=== PATIENT | female | born 1945 | race Caucasian/White ===

== ENCOUNTER 2016-12-11 14:59 | Emergency (ER) | payer MEDICARE, OTHER ==
[~2016-12-11] VITALS: Ht 170.2 cm; Wt 82.3 kg
[~2016-12-11 14:59] MED LIST: CARV12.5 PO; CELE20TA PO; CIPR250T52 PO; CLON0.5T PO; FLUT50SP EACH NARE; HYDR-3801 PO; LEVO112T2 PO; LOVA10TA PO; METF500 PO; PERC5TAB12 PO; PRIN20TA2 PO
[2016-12-11 15:12] VITALS: PULSE 69; RESP 16; TEMP 97.9; O2SAT 93
[2016-12-11] MEDS ORDERED: CEPH-460 PO (16:39)
--- NOTE | 2016-12-11 16:39 | PD ---
HPI Chief Complaint: Fall Time Seen by Provider: 16:30 Travel History International Travel<30 days: No Contact w/Intl Traveler<30days: No Traveled to known affect area: No History of Present Illness HPI This 71-year-old female is complaining of redness to her right leg. She had a fall 2 days ago. She scraped her leg at that time. She also bumped her head. She has not been having any headache or any numbness or tingling. She is concerned because the area around the scrapes is become red and she has not noted any fever. She does have a history of diabetes which is treated with metformin. He has a history of stroke which has left her with right hemiparesis PFSH Past Medical History Hx Anticoagulant Therapy: Yes Arthritis: Yes Anxiety: Yes Depression: Yes Heart Rhythm Problems: No Cancer: No Cardiovascular Problems: Yes (htn on meds) High Cholesterol: Yes Chest Pain: No Congestive Heart Failure: No COPD: Yes Cerebrovascular Accident: Yes (cva 3 yrs ago) Diabetes: Yes (type 2) Patient Takes Glucophage: Yes Diminished Hearing: No Endocrine: Yes (HYPOTHYROID) Gastrointestinal Disorders: No Genitourinary: Yes (CKD II) Headaches: No Hypertension: Yes Immune Disorder: No Implanted Vascular Access Dvce: No Insomnia: Yes Kidney Stones: No Musculoskeletal: Yes (generalized muscle weakness) Neurologic: Yes Psychiatric: Yes Reproductive: No Respiratory: Yes Migraines: No Myocardial Infarction: Yes Renal Failure: No Seizures: No Sleep Apnea: No Thyroid Disease: Yes ?: Not Menopausal: Yes : 4 Para: 4 Tubal Ligation: Yes Past Surgical History Abdominal Surgery: Yes (gallbladder) AICD: No Arteriovenous Shunt: No Cardiac Surgery: Yes (ENDARTERECTOMY) Section: Yes Cholecystectomy: Yes Ear Surgery: No Endocrine Surgery: No Eye Surgery: Yes (cataract) Genitourinary Surgery: No Gynecologic Surgery: Yes (c section ) Insulin Pump: No Joint Replacement: No Neurologic Surgery: No Oral Surgery: No Pacemaker: No Thoracic Surgery: No Other Surgery: Yes Social History Alcohol Use: No Tobacco Use: No Substance Use: No Allergies-Medications (Allergen,Severity, Reaction): Coded Allergies: Terramycin (Verified Allergy, Severe, 12/11/16) Reported Meds & Prescriptions Reported Meds & Active Scripts Active Cipro (Ciprofloxacin HCl) 250 Mg Tab 250 Mg PO BID 3 Days Reported Percocet (Oxycodone-Acetaminophen) 5-325 mg Tab 1 Tab PO Q6H PRN Prinivil (Lisinopril) 20 Mg Tab 40 Mg PO DAILY Lovastatin 10 Mg Tab 10 Mg PO DAILY Levothyroxine (Levothyroxine Sodium) 112 Mcg Tab 112 Mcg PO DAILY Glucophage (Metformin HCl) 500 Mg Tab 1,000 Mg PO BIDPC With meals Clonazepam 0.5 Mg Tab 0.5 Mg PO BID Celexa (Citalopram Hydrobromide) 20 Mg Tab 20 Mg PO DAILY Hydralazine (Hydralazine HCl) 100 Mg Tab 100 Mg PO BID Take with meals Fluticasone Nasal [place] 50 Mcg/Act Naspr 50 Mcg EACH NARE BID 50 mcg/spray Coreg (Carvedilol) 12.5 Mg Tab 25 Mg PO BID Review of Systems General / Constitutional: No: Fever, Chills Eyes: No: Diploplia, Blurred Vision HENT: No: Headaches, Vertigo Cardiovascular: No: Chest Pain or Discomfort, Palpitations Respiratory: No: Cough, Shortness of Breath Gastrointestinal: No: Nausea Skin: Positive Rash Neurologic: Positive: Focal Abnormalities, No: Weakness Psychiatric: No: Anxiety Hematologic/Lymphatic: No: Easy Bruising Physical Exam Narrative GENERAL: Well-developed female SKIN: Warm and dry. There are several abrasions over the anterior portion of the lower leg. There is some surrounding erythema. There is no purulent drainage. There is no lymphangitis or lymphadenopathy HEAD: Atraumatic. Normocephalic. EYES: Pupils equal and round. No scleral icterus. No injection or drainage. ENT: No nasal bleeding or discharge. Mucous membranes pink and moist. NECK: Trachea midline. No JVD. CARDIOVASCULAR: Regular rate and rhythm. No murmur appreciated. RESPIRATORY: No accessory muscle use. Clear to auscultation. Breath sounds equal bilaterally. GASTROINTESTINAL: Abdomen soft, non-tender, nondistended. Hepatic and splenic margins not palpable. MUSCULOSKELETAL: No obvious deformities. No clubbing. No cyanosis. No edema. NEUROLOGICAL: Awake and alert. No obvious cranial nerve deficits. Motor grossly within normal limits. Normal speech. PSYCHIATRIC: Appropriate mood and affect; insight and judgment normal. Data Data Last Documented VS Vital Signs Date Time Temp Pulse Resp B/P Pulse Ox O2 Delivery O2 Flow Rate FiO2 12/11/16 15:12 97.9 69 16 93 [facility] Medical Decision Making Medical Screen Exam Complete: Yes Emergency Medical Condition: Yes Medical Record Reviewed: Yes Differential Diagnosis Differential includes cellulitis, healing wound, abrasion tibia Narrative Course Patient does have cellulitis surrounding her abrasions. She does not appear toxic. She'll be placed on Keflex Diagnosis Primary Impression: Cellulitis of right leg Scripts Cephalexin (Keflex)500 Mg [id number] Mg PO Q6H #28 CAP Ref 0 Prov:Xavier Batista MD 12/11/16 Disposition: 01 DISCHARGE HOME Condition: Stable Xavier Batista MD Dec 11, 2016 16:39
[2016-12-11] MEDS ORDERED: CEPHALEXIN MONOHYDRATE 500 MG CAP PO ONE (16:45)
== END 2016-12-11 18:20 | disposition home or self-care (01) ==
LOC: PHED 14:59
DX: L03.115 Cellulitis of right lower limb (principal)
CPT/HCPCS: 99282

== ENCOUNTER 2017-12-28 16:08 | Inpatient (IN) | payer OTHER, MEDICAID, MEDICARE ==
[~2017-12-28] VITALS: Ht 170.2 cm; Wt 83.0 kg
[~2017-12-28 16:08] MED LIST changes: +CEPH-460 PO; -CIPR250T52 PO
[2017-12-28 18:52] VITALS: BP 144/66; PULSE 73; RESP 16; TEMP 99; O2SAT 93
[2017-12-28 20:20] VITALS: BP 128/53; PULSE 76; RESP 16; O2SAT 94
--- NOTE | 2017-12-28 20:21 | PD ---
HPI Chief Complaint: GI Complaint Time Seen by Provider: 19:43 Travel History International Travel<30 days: No Contact w/Intl Traveler<30days: No Traveled to known affect area: No History of Present Illness HPI Patient is a 72-year-old female apparently presented to the emergency department before the start of my shift for evaluation of nausea vomiting and diarrhea. She has been waiting for an extended period of time for examination, a my examination the patient is fairly altered, she cannot tell me the day or the time. EMSs long since left and her EMS report is not readily available at this time. The patient is a GCS of 14, fairly confused and unable to answer any my questions. No family available for further questions either. PFSH Past Medical History Hx Anticoagulant Therapy: Yes Arthritis: Yes Anxiety: Yes Depression: Yes Heart Rhythm Problems: No Cancer: No Cardiovascular Problems: Yes (htn on meds) High Cholesterol: Yes Chest Pain: No Congestive Heart Failure: No COPD: Yes Cerebrovascular Accident: Yes (cva 3 yrs ago) Diabetes: Yes (type 2) Diminished Hearing: No Endocrine: Yes (HYPOTHYROID) Gastrointestinal Disorders: No Genitourinary: Yes (CKD II) Headaches: No Hypertension: Yes Immune Disorder: No Implanted Vascular Access Dvce: No Insomnia: Yes Kidney Stones: No Musculoskeletal: Yes (generalized muscle weakness) Neurologic: Yes Psychiatric: Yes Reproductive: No Respiratory: Yes Migraines: No Myocardial Infarction: Yes Renal Failure: No Seizures: No Sleep Apnea: No Thyroid Disease: Yes ?: Not Menopausal: Yes : 4 Para: 4 Tubal Ligation: Yes Past Surgical History Abdominal Surgery: Yes (gallbladder) AICD: No Arteriovenous Shunt: No Cardiac Surgery: Yes (ENDARTERECTOMY) Section: Yes Cholecystectomy: Yes Ear Surgery: No Endocrine Surgery: No Eye Surgery: Yes (cataract) Genitourinary Surgery: No Gynecologic Surgery: Yes (c section ) Insulin Pump: No Joint Replacement: No Neurologic Surgery: No Oral Surgery: No Pacemaker: No Thoracic Surgery: No Other Surgery: Yes Social History Alcohol Use: No Tobacco Use: No Substance Use: No Allergies-Medications (Allergen,Severity, Reaction): Coded Allergies: oxytetracycline (Unverified Allergy, Severe, 05/30/17) Reported Meds & Prescriptions Reported Meds & Active Scripts Active Keflex (Cephalexin) 500 Mg Cap 500 Mg PO Q6H Reported Percocet (Oxycodone-Acetaminophen) 5-325 mg Tab 1 Tab PO Q6H PRN Prinivil (Lisinopril) 20 Mg Tab 40 Mg PO DAILY Lovastatin 10 Mg Tab 10 Mg PO DAILY Levothyroxine (Levothyroxine Sodium) 112 Mcg Tab 112 Mcg PO DAILY Glucophage (Metformin HCl) 500 Mg Tab 1,000 Mg PO BIDPC With meals Clonazepam 0.5 Mg Tab 0.5 Mg PO BID Celexa (Citalopram Hydrobromide) 20 Mg Tab 20 Mg PO DAILY Hydralazine (Hydralazine HCl) 100 Mg Tab 100 Mg PO BID Take with meals Fluticasone Nasal [place] 50 Mcg/Act Naspr 50 Mcg EACH NARE BID 50 mcg/spray Coreg (Carvedilol) 12.5 Mg Tab 25 Mg PO BID Review of Systems ROS Limitations: Altered Mental Status Physical Exam Exam Limitations: Altered Mental Status Narrative GENERAL: Well-developed well-nourished, confused, no obvious distress peer SKIN: Focused skin assessment warm/dry. HEAD: Atraumatic. Normocephalic. EYES: Pupils equal and round. No scleral icterus. No injection or drainage. ENT: No nasal bleeding or discharge. Mucous membranes pink and moist. NECK: Trachea midline. No JVD. CARDIOVASCULAR: Regular rate and rhythm. No murmur appreciated. RESPIRATORY: No accessory muscle use. Clear to auscultation. Breath sounds equal bilaterally. GASTROINTESTINAL: Abdomen soft, non-tender, nondistended. Hepatic and splenic margins not palpable. She has not had any vomiting or diarrhea while in the emergency department. MUSCULOSKELETAL: No obvious deformities. No clubbing. No cyanosis. No edema. NEUROLOGICAL: Awake and alert, oriented to self only, GCS of 14 for confusion, follows commands in all 4 extremities. PSYCHIATRIC: Appropriate mood and affect; insight and judgment normal. Data Data Last Documented VS Vital Signs Date Time Temp Pulse Resp B/P (MAP) Pulse Ox O2 Delivery O2 Flow Rate FiO2 12/28/17 21:48 98 Room Air 12/28/17 20:20 76 16 2.00 12/28/17 18:52 99.0 Orders Orders Electrocardiogram (12/28/17 20:19) Complete Blood Count With Diff (12/28/17 20:19) Comprehensive Metabolic Panel (12/28/17 20:19) Creatine Kinase (Cpk) (12/28/17 20:19) Prothrombin Time / Inr (Pt) (12/28/17 20:19) Act Partial Throm Time (Ptt) (12/28/17 20:19) Troponin I (12/28/17 20:19) Thyroid Stimulating Hormone (12/28/17 20:19) Urinalysis - C+S If Indicated (12/28/17 20:19) Chest, Single Ap (12/28/17 20:19) Ct Brain W/O Iv Contrast(Rout) (12/28/17 20:19) Blood Glucose (12/28/17 20:19) Ecg Monitoring (12/28/17 20:19) Iv Access Insert/Monitor (12/28/17 20:19) Oximetry (12/28/17 20:19) Sodium Chloride 0.9% Flush (Ns Flush) (12/28/17 20:30) Cath For Specimen (12/28/17 22:34) Urine Culture (12/28/17 23:48) Blood Culture (12/29/17 00:50) Ceftriaxone Inj (Rocephin Inj) (12/29/17 01:00) Labs Laboratory Tests Test 12/28/17 20:29 12/28/17 23:48 White Blood Count 13.8 TH/MM3 Red Blood Count 4.04 MIL/MM3 Hemoglobin 12.3 GM/DL Hematocrit 36.7 % Mean Corpuscular Volume 90.8 FL Mean Corpuscular Hemoglobin 30.5 PG Mean Corpuscular Hemoglobin Concent 33.6 % Red Cell Distribution Width 13.2 % Platelet Count 148 TH/MM3 Mean Platelet Volume 9.1 FL CBC Comment AUTO DIFF Differential Total Cells Counted 100 Neutrophils % (Manual) 87 % Band Neutrophils % 4 % Lymphocytes % 3 % Monocytes % 6 % Neutrophils # (Manual) 12.6 TH/MM3 Differential Comment FINAL DIFF MANUAL Platelet Estimate LOW Platelet Morphology Comment NORMAL Prothrombin Time 10.6 SEC Prothromb Time International Ratio 1.0 RATIO Activated Partial Thromboplast Time 21.3 SEC Blood Urea Nitrogen 22 MG/DL Creatinine 1.17 MG/DL Random Glucose 157 MG/DL Total Protein 7.2 GM/DL Albumin 3.5 GM/DL Calcium Level 9.4 MG/DL Alkaline Phosphatase 62 U/L Aspartate Amino Transf (AST/SGOT) 15 U/L Alanine Aminotransferase (ALT/SGPT) 19 U/L Total Bilirubin 1.2 MG/DL Sodium Level 138 MEQ/L Potassium Level 4.3 MEQ/L Chloride Level 104 MEQ/L Carbon Dioxide Level 24.4 MEQ/L Anion Gap 10 MEQ/L Estimat Glomerular Filtration Rate 45 ML/MIN Total Creatine Kinase 81 U/L Troponin I LESS THAN 0.02 NG/ML Thyroid Stimulating Hormone 3rd Gen 0.301 uIU/ML Urine Color DARK-YELLOW Urine Turbidity HAZY Urine pH 5.5 Urine Specific [place] 1.023 Urine Protein 30 mg/dL Urine Glucose (UA) NEG mg/dL Urine Ketones NEG mg/dL Urine Occult Blood NEG Urine Nitrite POS Urine Bilirubin NEG Urine Urobilinogen LESS THAN 2.0 MG/DL Urine Leukocyte Esterase LARGE Urine RBC 10 /hpf Urine WBC 39 /hpf Urine WBC Clumps MANY Urine Squamous Epithelial Cells 1 /hpf Urine Bacteria MANY /hpf Urine Mucus FEW /lpf Microscopic Urinalysis Comment CATH-CULTURE IND MDM Medical Decision Making Medical Screen Exam Complete: Yes Emergency Medical Condition: Yes Differential Diagnosis UTI, altered mental status, intracranial abnormality, sepsis Narrative Course Patient room to the emergency department, she appears well but certainly altered , my concern for UTI, took several hours to get catheterization and finally does show evidence of UTI, she was started on Rocephin, discussed with Dr. Fofana for admission. I had attempted to call her next of kin on the contact number we have on file and was unsuccessful in contacting any next of kin. Diagnosis Primary Impression: Urinary tract infection Additional Impression: Altered mental status Admitting Information Admitting Physician Requests: Admit Condition: Stable Shilo Barrientos MD Dec 28, 2017 20:21
[2017-12-28] MEDS ORDERED: SODIUM CHLORIDE 0.9% FLUSH 10 ML FLUSH IV FLUSH PRN (20:30)
[2017-12-28 20:43] LABS: HEMATOCRIT 36.7 % (35.0-46.0); HEMOGLOBIN 12.3 GM/DL (11.6-15.3); MEAN CELL VOLUME 90.8 FL (80.0-100.0); MEAN CORPUSCULAR HEMOGLOBIN 30.5 PG (27.0-34.0); MEAN CORPUSCULAR HGB CONC 33.6 % (32.0-36.0); MEAN PLATELET VOLUME 9.1 FL (7.0-11.0); PLATELET COUNT 148 TH/MM3 (150-450); RED BLOOD COUNT 4.04 MIL/MM3 (4.00-5.30); RED CELL DISTRIBUTION WIDTH 13.2 % (11.6-17.2); WHITE BLOOD COUNT 13.8 TH/MM3 (4.0-11.0)
[2017-12-28 20:55] LABS: PROTHROMBIN TIME - PATIENT 10.6 SEC (9.8-11.6)
--- NOTE | 2017-12-28 21:04 | RADRPT ---
EXAM DATE/TIME: 12/28/2017 20:48 [facility] COMPARISON: CT THORAX W/O CONTRAST, August 18, 2015, 17:58. CHEST SINGLE AP, August 18, 2015, 14:38. INDICATIONS : Syncope. MEDICAL HISTORY : Stroke. Hypertension. Chronic obstructive pulmonary disease.Diabetes. SURGICAL HISTORY : Cholecystectomy. section.Tubal ligation.Endartectomy. ENCOUNTER: Initial ACUITY: 1 day PAIN SCORE: Non-responsive. LOCATION: Bilateral chest FINDINGS: There are mild bilateral interstitial perihilar infiltrates. Similar findings have been seen on the p revious studies. No acute infiltrate. No pleural effusion or pneumothorax. Heart size stable, within normal limits. CONCLUSION: Chronic perihilar interstitial opacities. No acute infiltrates seen. Ede Barraza MD on December 28, 2017 at 21:01 Board Certified Radiologist. This report was verified electronically.
--- NOTE | 2017-12-28 21:06 | RADRPT ---
EXAM DATE/TIME: 12/28/2017 20:58 [facility] COMPARISON: CT BRAIN W/O CONTRAST, October 05, 2016, 14:19. INDICATIONS : Altered mental status. RADIATION DOSE: 37.89 CTDIvol (mGy) MEDICAL HISTORY : Hypertension. Cerebrovascular disease. Diabetes mellitus type 1. SURGICAL HISTORY : Non-responsive. ENCOUNTER: Initial ACUITY: 1 day PAIN SCALE: 0/10 LOCATION: cranial TECHNIQUE: Multiple contiguous axial images were obtained of the head. Using automated exposure control and adj ustment of the mA and/or kV according to patient size, radiation dose was kept as low as reasonably a chievable to obtain optimal diagnostic quality images. DICOM format image data is available electro nically for review and comparison. FINDINGS: CEREBRUM: The ventricles are normal for age. No evidence of midline shift, mass lesion, hemorrhage or acute in farction. No extra-axial fluid collections are seen. Atrophy and chronic low attenuation in the [place] ventricular white matter again noted. There is an old infarct of the left parietal lobe again seen. POSTERIOR FOSSA: The cerebellum and brainstem are intact. The 4th ventricle is midline. The cerebellopontine angle i s unremarkable. EXTRACRANIAL: The visualized portion of the orbits is intact. SKULL: The calvaria is intact. No evidence of skull fracture. CONCLUSION: 1. No acute abnormality demonstrated. 2. Large, old left parietal lobe infarct. 3. Atrophy and chronic white matter changes. Ede Barraza MD on December 28, 2017 at 21:03 Board Certified Radiologist. This report was verified electronically.
[2017-12-28 21:12] LABS: ALBUMIN 3.5 GM/DL (3.4-5.0); AST (GOT) 15 U/L (15-37); BICARBONATE 24.4 MEQ/L (21.0-32.0); BLOOD UREA NITROGEN 22 MG/DL (7-18); CALCIUM 9.4 MG/DL (8.5-10.1); CHLORIDE 104 MEQ/L (98-107); CREATININE 1.17 MG/DL (0.50-1.00); GLOMERULAR FILTRATION RATE 45 ML/MIN (>89); GLUCOSE,RANDOM 157 MG/DL (74-106); SODIUM (NA) 138 MEQ/L (136-145)
[2017-12-28 21:13] LABS: ALT (GPT) 19 U/L (10-53)
[2017-12-28 21:23] LABS: ALKALINE PHOSPHATASE 62 U/L (45-117); TOTAL BILIRUBIN ADULT 1.2 MG/DL (0.2-1.0); TOTAL PROTEIN 7.2 GM/DL (6.4-8.2); TROPONIN I LESS THAN 0.02 NG/ML (0.02-0.05)
[2017-12-28 21:41] LABS: BANDS 4 % (0-6); LYMPHOCYTES 3 % (9-44); MONOCYTES 6 % (0-8); NEUTROPHIL # MANUAL DIFF 12.6 TH/MM3 (1.8-7.7); POLYS (SEG NEUTROPHILS) 87 % (16-70)
[2017-12-28 21:48] VITALS: O2SAT 98
[2017-12-29] VITALS (7 sets, daily range): BP systolic 117–152; BP diastolic 56–82; PULSE 79–86; RESP 16–20; TEMP 98.2–99.4; O2SAT 94–98
[2017-12-29 00:44] LABS: BACTERIA, URINE MANY /hpf; BILIRUBIN, URINE NEG (NEG); BLOOD, URINE NEG (NEG); GLUCOSE,URINE NEG (NEG); KETONE, URINE NEG (NEG); MUCUS URINE FEW /lpf (OCC); NITRITE,URINE POS (NEG); PH, URINE 5.5 (5.0-8.5); SQUAMOUS EPITHELIAL CELL URINE 1 /hpf (0-5); URINE COLOR DARK-YELLOW (YELLW/STRAW); URINE LEUKOCYTE ESTERASE LARGE (NEG); WHITE BLOOD CELL CLUMPS MANY
[2017-12-29] MEDS ORDERED: cefTRIAXone INJ 1,000 MG in SODIUM CHLORIDE 0.9% INJ 100 ML IV ONE (01:00)
[2017-12-29] MEDS ORDERED: LACTULOSE SYRUP 20 GM/30 ML CUP PO PRN (01:15)
[2017-12-29] MEDS ORDERED: NALOXONE HCL 0.4 MG/ML AMP IV PUSH PRN (01:15)
[2017-12-29] MEDS ORDERED: SENNOSIDES 8.6 MG TAB PO PRN (01:15)
[2017-12-29] MEDS ORDERED: SODIUM CHLORIDE 0.9% FLUSH 10 ML FLUSH IV FLUSH PRN (01:15)
[2017-12-29] MEDS ORDERED: ACETAMINOPHEN 325 MG TAB PO PRN (01:15)
[2017-12-29] MEDS ORDERED: ONDANSETRON HCL 4 MG/2 ML VIAL IVP PRN (01:15)
[2017-12-29] MEDS ORDERED: BISACODYL 10 MG SUPP RECTAL PRN (01:15)
[2017-12-29] MEDS ORDERED: MAGNESIUM HYDROXIDE SUSP 30 ML CUP PO PRN (01:15)
[2017-12-29] MEDS ORDERED: DEXTROSE 50% IN WATER 50 ML VIAL(D50) IV PUSH PRN (01:30)
[2017-12-29] MEDS ORDERED: GLUCAGON 1 MG/ML VIAL OTHER PRN (01:30)
[2017-12-29] MEDS: SODIUM CHLOR 0.9% 1000 ML INJ 1,000 ML IV SCH ×3 (01:42→21:30)
[2017-12-29] MEDS: HEPARIN SODIUM - SQ 10,000 UNITS/ML VIAL SQ SCH ×3 (01:43→18:14)
--- NOTE | 2017-12-29 04:40 | HHI.HP ---
[facility] David Hanley MD Admission Diagnosis Altered mental status/Complicated UTI. Diagnoses: Travel History International Travel<30 Days: No Contact w/Intl Traveler <30 Da: No Traveled to Known Affected Are: No History of Present Illness 71-year-old female with a PMH of HTN, h/o CVA w/ Expressive Aphasia, COPD, DM, Anxiety and Depression who was brought to the emergency department for the evaluation of nausea, vomiting and diarrhea. The patient seems somewhat altered although her baseline is unknown. Previous attempts to contact her son were unsuccessful. She states that she "needs to have a cigarette." And that her "stroke has been getting worse" for approximately one month. The patient know she is in [place]. Does not know the year or her exact location. Patient complains of right sided weakness that she believes is worsening. She is unable to answer any additional questions. Review of Systems ROS Limitations: Clinical Condition Limited by clinical condition Past Family Social History Past Medical History (Obtained from medical records) HTN, h/o CVA w/ Expressive Aphasia, COPD, DM, Anxiety and Depression Past Surgical History Cholecystectomy, Endarterectomy, , Cataract Surgery Reported Medications Reported Meds & Active Scripts Active Keflex (Cephalexin) 500 Mg Cap 500 Mg PO Q6H Reported Percocet (Oxycodone-Acetaminophen) 5-325 mg Tab 1 Tab PO Q6H PRN Prinivil (Lisinopril) 20 Mg Tab 40 Mg PO DAILY Lovastatin 10 Mg Tab 10 Mg PO DAILY Levothyroxine (Levothyroxine Sodium) 112 Mcg Tab 112 Mcg PO DAILY Glucophage (Metformin HCl) 500 Mg Tab 1,000 Mg PO BIDPC With meals Clonazepam 0.5 Mg Tab 0.5 Mg PO BID Celexa (Citalopram Hydrobromide) 20 Mg Tab 20 Mg PO DAILY Hydralazine (Hydralazine HCl) 100 Mg Tab 100 Mg PO BID Take with meals Fluticasone Nasal [place] 50 Mcg/Act Naspr 50 Mcg EACH NARE BID 50 mcg/spray Coreg (Carvedilol) 12.5 Mg Tab 25 Mg PO BID Allergies: Coded Allergies: oxytetracycline (Unverified Allergy, Severe, 05/30/17) Family History Reviewed. No h/o DM or CAD Social History Negative for alcohol, tobacco or drugs. Physical Exam Vital Signs Vital Signs Date Time Temp Pulse Resp B/P (MAP) Pulse Ox O2 Delivery O2 Flow Rate FiO2 12/29/17 01:43 82 16 127/82 (97) 98 Nasal Cannula 2.00 12/28/17 21:48 98 Room Air 12/28/17 20:20 76 16 128/53 (78) 94 Nasal Cannula 2.00 12/28/17 18:52 99.0 73 16 144/66 (92) 93 Physical Exam GENERAL: female lying in bed SKIN: No rashes, ecchymoses or lesions. Cool and dry. HEAD: Atraumatic. Normocephalic. No temporal or scalp tenderness. EYES: Pupils equal round and reactive. Extraocular motions intact. No scleral icterus. No injection or drainage. ENT: Nose without bleeding, purulent drainage or septal hematoma. Throat without erythema, tonsillar hypertrophy or exudate. Uvula midline. Airway patent. NECK: Trachea midline. No JVD or lymphadenopathy. Supple, nontender, no meningeal signs. CARDIOVASCULAR: Regular rate and rhythm without murmurs, gallops, or rubs. RESPIRATORY: Clear to auscultation. Breath sounds equal bilaterally. No wheezes , rales, or rhonchi. GASTROINTESTINAL: Abdomen soft, non-tender, nondistended. No hepato-splenomegaly , or palpable masses. No guarding. MUSCULOSKELETAL: Contractures of the second through fourth digits of the right hand. Able to move all 4 extremities. No edema. NEUROLOGICAL: Awake and alert. Cranial nerves II through XII intact. Mildly slurred speech with unclear baseline. Right-sided weakness in the right upper and lower extremities. Unable to fully assess neurologic status is patient has difficulty following commands. Laboratory Laboratory Tests Test 12/28/17 20:29 12/28/17 23:48 12/29/17 03:25 White Blood Count 13.8 Red Blood Count 4.04 Hemoglobin 12.3 Hematocrit 36.7 Mean Corpuscular Volume 90.8 Mean Corpuscular Hemoglobin 30.5 Mean Corpuscular Hemoglobin Concent 33.6 Red Cell Distribution Width 13.2 Platelet Count 148 Mean Platelet Volume 9.1 CBC Comment AUTO DIFF Differential Total Cells Counted 100 Neutrophils % (Manual) 87 Band Neutrophils % 4 Lymphocytes % 3 Monocytes % 6 Neutrophils # (Manual) 12.6 Differential Comment FINAL DIFF MANUAL Platelet Estimate LOW Platelet Morphology Comment NORMAL Prothrombin Time 10.6 Prothromb Time International Ratio 1.0 Activated Partial Thromboplast Time 21.3 Blood Urea Nitrogen 22 Creatinine 1.17 Random Glucose 157 Total Protein 7.2 Albumin 3.5 Calcium Level 9.4 Alkaline Phosphatase 62 Aspartate Amino Transf (AST/SGOT) 15 Alanine Aminotransferase (ALT/SGPT) 19 Total Bilirubin 1.2 Sodium Level 138 Potassium Level 4.3 Chloride Level 104 Carbon Dioxide Level 24.4 Anion Gap 10 Estimat Glomerular Filtration Rate 45 Total Creatine Kinase 81 Troponin I LESS THAN 0.02 Thyroid Stimulating Hormone 3rd Gen 0.301 Urine Color DARK-YELLOW Urine Turbidity HAZY Urine pH 5.5 Urine Specific [place] 1.023 Urine Protein 30 Urine Glucose (UA) NEG Urine Ketones NEG Urine Occult Blood NEG Urine Nitrite POS Urine Bilirubin NEG Urine Urobilinogen LESS THAN 2.0 Urine Leukocyte Esterase LARGE Urine RBC 10 Urine WBC 39 Urine WBC Clumps MANY Urine Squamous Epithelial Cells 1 Urine Bacteria MANY Urine Mucus FEW Microscopic Urinalysis Comment CATH-CULTURE IND Lactic Acid Level 0.9 Date/Time Source Procedure Growth Status 12/29/17 01:15 Blood Peripheral Aerobic Blood Culture Pending Received 12/29/17 01:15 Blood Peripheral Anaerobic Blood Culture Pending Received 12/28/17 23:48 Urine Catheterized Urine Urine Culture Pending Received Result Diagram: 12/28/17202812/28/172028 Caprini VTE Risk Assessment Caprini VTE Risk Assessment: Mod/High Risk (score >= 2) Caprini Risk Assessment Model Point Value = 1 Point Value = 2 Point Value = 3 Point Value = 5 Age 41-60 Minor surgery BMI > 25 kg/m2 Swollen legs Varicose veins or History of unexplained or recurrent spontaneous Oral contraceptives or hormone replacement Sepsis (< 1 month) Serious lung disease, including pneumonia (< 1 month) Abnormal pulmonary function Acute myocardial infarction Congestive heart failure (< 1 month) History of inflammatory bowel disease Medical patient at bed rest Age 61-74 Arthroscopic surgery Major open surgery (> 45 min) Laparoscopic surgery (> 45 min) Malignancy Confined to bed (> 72 hours) Immobilizing plaster cast Central venous access Age >= 75 History of VTE Family history of VTE Factor V Leiden Prothrombin [id number] Lupus anticoagulant Anticardiolipin antibodies Elevated serum homocysteine Heparin-induced thrombocytopenia Other congenital or acquired thrombophilia Stroke (< 1 month) Elective arthroplasty Hip, pelvis, or leg fracture Acute spinal cord injury (< 1 month) Prophylaxis Regimen Total Risk Factor Score Risk Level Prophylaxis Regimen 0-1 Low Early ambulation 2 Moderate Order ONE of the following: *Sequential Compression Device (SCD) *Heparin 5000 units SQ BID 3-4 Higher Order ONE of the following medications: *Heparin 5000 units SQ TID *Enoxaparin/Lovenox 40 mg SQ daily (WT < 150 kg, CrCl > 30 mL/min) *Enoxaparin/Lovenox 30 mg SQ daily (WT < 150 kg, CrCl > 10-29 mL/min) *Enoxaparin/Lovenox 30 mg SQ BID (WT < 150 kg, CrCl > 30 mL/min) AND/OR *Sequential Compression Device (SCD) 5 or more Highest Order ONE of the following medications: *Heparin 5000 units SQ TID (Preferred with Epidurals) *Enoxaparin/Lovenox 40 mg SQ daily (WT < 150 kg, CrCl > 30 mL/min) *Enoxaparin/Lovenox 30 mg SQ daily (WT < 150 kg, CrCl > 10-29 mL/min) *Enoxaparin/Lovenox 30 mg SQ BID (WT < 150 kg, CrCl > 30 mL/min) AND *Sequential Compression Device (SCD) Assessment and Plan Assessment and Plan Assessment/plan: 1. Altered mental status Unclear etiology Head CT significant for large, old left parietal lobe infarct, personally reviewed. No acute findings. Likely secondary to UTI Baseline unknown, patient's son was called and a message was left however he never returned call If patient's mental status does not return to baseline, patient may benefit from additional imaging and neurology consult 2. UTI UA consistent with UTI Leukocytosis Urine/blood cultures pending Rocephin IV fluids 3. Hypertension/COPD/anxiety/depression Continue home medication 4. Diabetes mellitus Sliding scale insulin Monitor blood glucose FEN Heart healthy diet Electrolytes: Monitor and replete when necessary Heparin Physician Certification 2 Midnight Certification Type: Admission for Inpatient Services Order for Inpatient Services The services are ordered in accordance with Medicare regulations or non- Medicare payer requirements, as applicable. In the case of services not specified as inpatient-only, they are appropriately provided as inpatient services in accordance with the 2-midnight benchmark. Estimated LOS (days): 2 2 days is the estimated time the patient will need to remain in the hospital, assuming treatment plan goals are met and no additional complications. Post-Hospital Plan: Not yet determined Amena Fofana MD Dec 29, 2017 04:40
[2017-12-29] MEDS: INSULIN ASPART SUPPLEMENTAL SCALE SQ SCH ×4 (07:58→21:00)
[2017-12-29] MEDS: LEVOTHYROXINE SODIUM 112 MCG TAB PO SCH (07:58)
[2017-12-29] MEDS: SODIUM CHLORIDE 0.9% FLUSH 10 ML FLUSH IV FLUSH SCH ×2 (08:58→21:30)
[2017-12-29] MEDS ORDERED: ETOMIDATE 40 MG/20 ML VIAL ONE (09:02)
[2017-12-29] MEDS ORDERED: SUCCINYLCHOLINE CHLORIDE 200 MG/10 ML VIAL ONE (09:02)
[2017-12-29] MEDS: CITALOPRAM HYDROBROMIDE 20 MG TAB PO SCH (10:13)
[2017-12-29] MEDS: hydrALAZINE HCL 100 MG TAB PO SCH ×2 (10:13→21:30)
[2017-12-29] MEDS: LISINOPRIL 20 MG TAB PO SCH (10:13)
[2017-12-29] MEDS: DOCUSATE SODIUM 50 MG/SENNA 8.6 MG TAB PO SCH ×2 (10:13→21:30)
[2017-12-29] MEDS: CARVEDILOL 12.5 MG TAB PO SCH ×2 (10:14→21:30)
[2017-12-29] MEDS: PRAVASTATIN SOD 10 MG TAB PO SCH (10:15)
--- NOTE | 2017-12-29 16:48 | EKG ---
Date Performed: 12/28/2017 Time Performed: 21:15:05 PTAGE: 72 years EKG: Sinus rhythm WITH SINUS ARRHYTHMIA NORMAL ECG Compared to PREVIOUS TRACING , PVCs no longer present, otherwise no signficant change. PREVIOUS MATEO N08/18/2015 16.01 DOCTOR: Dano Agee Interpretating Date/Time 12/29/2017 16:46:39
[2017-12-30 01:06] VITALS: BP 123/60; PULSE 84; RESP 20; TEMP 98.6; O2SAT 93
[2017-12-30] MEDS: cefTRIAXone INJ 1,000 MG in SODIUM CHLORIDE 0.9% INJ 100 ML IV SCH (01:32)
[2017-12-30] MEDS: HEPARIN SODIUM - SQ 10,000 UNITS/ML VIAL SQ SCH ×3 (01:33→17:45)
[2017-12-30] MEDS: LEVOTHYROXINE SODIUM 112 MCG TAB PO SCH (06:32)
[2017-12-30] MEDS: SODIUM CHLOR 0.9% 1000 ML INJ 1,000 ML IV SCH ×2 (06:35→17:15)
[2017-12-30 06:40] VITALS: BP 131/62; PULSE 85; RESP 20; TEMP 98.7; O2SAT 92
[2017-12-30 07:26] VITALS: BP 147/68; PULSE 75; RESP 17; TEMP 100; O2SAT 92
[2017-12-30] MEDS: INSULIN ASPART SUPPLEMENTAL SCALE SQ SCH ×4 (07:58→20:05)
[2017-12-30] MEDS: DOCUSATE SODIUM 50 MG/SENNA 8.6 MG TAB PO SCH ×2 (08:41→20:05)
[2017-12-30] MEDS: hydrALAZINE HCL 100 MG TAB PO SCH ×2 (08:41→20:04)
[2017-12-30] MEDS: CITALOPRAM HYDROBROMIDE 20 MG TAB PO SCH (08:42)
[2017-12-30] MEDS: SODIUM CHLORIDE 0.9% FLUSH 10 ML FLUSH IV FLUSH SCH ×2 (08:42→20:05)
[2017-12-30] MEDS: PRAVASTATIN SOD 10 MG TAB PO SCH (08:42)
[2017-12-30] MEDS: LISINOPRIL 20 MG TAB PO SCH (08:42)
[2017-12-30] MEDS: CARVEDILOL 12.5 MG TAB PO SCH ×2 (08:42→20:05)
[2017-12-30 11:37] VITALS: BP 116/56; PULSE 79; RESP 18; TEMP 98.5; O2SAT 91
[2017-12-30 15:59] VITALS: BP 146/63; PULSE 76; RESP 18; TEMP 98.1; O2SAT 94
[2017-12-30 20:26] VITALS: BP 148/91; PULSE 69; RESP 18; TEMP 98.3; O2SAT 94
--- NOTE | 2017-12-30 23:58 | HHI.PR ---
Subjective Remarks Patient awake, tells me she feels fine, however appears generally confused Objective Vital Signs Date Time Temp Pulse Resp B/P (MAP) Pulse Ox O2 Delivery O2 Flow Rate FiO2 12/30/17 20:26 98.3 69 18 148/91 (110) 94 12/30/17 15:59 98.1 76 18 146/63 (90) 94 12/30/17 11:37 98.5 79 18 116/56 (76) 91 12/30/17 07:26 100.0 75 17 147/68 (94) 92 12/30/17 06:40 98.7 85 20 131/62 (85) 92 12/30/17 01:06 98.6 84 20 123/60 (81) 93 I/O 12/30/17 12/30/17 12/30/17 12/31/17 12/31/17 12/31/17 07:00 15:00 23:00 07:00 15:00 23:00 Intake Total 220 ml 480 ml Balance 220 ml 480 ml Intake Oral 120 ml 480 ml IV Total 100 ml # Voids 2 3 # Bowel Movements 1 Result Diagram: 12/28/17202812/28/172028 Objective Remarks GENERAL: patient sitting up in bed. Appears comfortable. SKIN: Warm and dry. HEAD: Normocephalic. EYES: No scleral icterus. No injection or drainage. NECK: Supple, trachea midline. No JVD. CARDIOVASCULAR: Regular rate and rhythm without murmurs, gallops, or rubs. RESPIRATORY: Breath sounds equal bilaterally. No accessory muscle use. GASTROINTESTINAL: Abdomen soft, non-tender, nondistended. MUSCULOSKELETAL: No cyanosis, or edema. BACK: Nontender without obvious deformity. No CVA tenderness. A/P Assessment and Plan //Altered mental status Unclear etiology Head CT significant for large, old left parietal lobe infarct, personally reviewed. No acute findings. Likely secondary to UTI Baseline unknown, patient's son was called and a message was left however he never returned call If patient's mental status does not return to baseline, patient may benefit from additional imaging and neurology consult //UTI UA consistent with UTI Leukocytosis Urine/blood cultures pending Rocephin IV fluids -Growing gram-negative shalom Follow up cultures. // Hypertension/COPD/anxiety/depression Continue home medication //Diabetes mellitus Sliding scale insulin Monitor blood glucose FEN Heart healthy diet Electrolytes: Monitor and replete when necessary Heparin Discharge Planning PG recommends home health Follow-up cultures. Alejandro Veronica MD Dec 30, 2017 23:58
[2017-12-31] MEDS: cefTRIAXone INJ 1,000 MG in SODIUM CHLORIDE 0.9% INJ 100 ML IV SCH (00:11)
[2017-12-31] MEDS: HEPARIN SODIUM - SQ 10,000 UNITS/ML VIAL SQ SCH ×3 (00:13→17:11)
[2017-12-31 00:20] VITALS: BP 140/62; PULSE 81; RESP 18; TEMP 99.8; O2SAT 93
[2017-12-31] MEDS: SODIUM CHLOR 0.9% 1000 ML INJ 1,000 ML IV SCH ×2 (03:15→12:35)
[2017-12-31 05:37] VITALS: BP 158/70; PULSE 89; RESP 17; TEMP 99.5; O2SAT 93
[2017-12-31] MEDS: LEVOTHYROXINE SODIUM 112 MCG TAB PO SCH (05:45)
[2017-12-31] MEDS: INSULIN ASPART SUPPLEMENTAL SCALE SQ SCH ×4 (08:00→20:32)
[2017-12-31] MEDS: SODIUM CHLORIDE 0.9% FLUSH 10 ML FLUSH IV FLUSH SCH ×2 (09:00→20:30)
[2017-12-31] MEDS: PRAVASTATIN SOD 10 MG TAB PO SCH (09:00)
[2017-12-31] MEDS: DOCUSATE SODIUM 50 MG/SENNA 8.6 MG TAB PO SCH ×2 (09:00→20:30)
[2017-12-31 09:20] VITALS: BP 151/67; PULSE 77; RESP 18; TEMP 99.6; O2SAT 92
[2017-12-31] MEDS: CITALOPRAM HYDROBROMIDE 20 MG TAB PO SCH (09:23)
[2017-12-31] MEDS: LISINOPRIL 20 MG TAB PO SCH (09:23)
[2017-12-31] MEDS: hydrALAZINE HCL 100 MG TAB PO SCH ×2 (09:23→20:30)
[2017-12-31] MEDS: CARVEDILOL 12.5 MG TAB PO SCH ×2 (09:24→20:30)
[2017-12-31 09:31] LABS: AUTOMATED NEUTROPHIL # 5.7 TH/MM3 (1.8-7.7); BASOPHIL # 0.1 TH/MM3 (0-0.2); BASOPHIL % 0.8 % (0.0-2.0); EOSINOPHIL # 0.3 TH/MM3 (0-0.4); EOSINOPHIL % 3.9 % (0.0-4.0); HEMATOCRIT 35.6 % (35.0-46.0); HEMOGLOBIN 12.2 GM/DL (11.6-15.3); LYMPH % 11.3 % (9.0-44.0); LYMPHOCYTE # 0.9 TH/MM3 (1.0-4.8); MEAN CELL VOLUME 89.9 FL (80.0-100.0); MEAN CORPUSCULAR HEMOGLOBIN 30.7 PG (27.0-34.0); MEAN CORPUSCULAR HGB CONC 34.2 % (32.0-36.0); MEAN PLATELET VOLUME 8.9 FL (7.0-11.0); MONOCYTE # 1.1 TH/MM3 (0-0.9); PLATELET COUNT 167 TH/MM3 (150-450); RED BLOOD COUNT 3.96 MIL/MM3 (4.00-5.30); WHITE BLOOD COUNT 8.1 TH/MM3 (4.0-11.0)
[2017-12-31 10:00] LABS: BICARBONATE 25.4 MEQ/L (21.0-32.0); CALCIUM 8.5 MG/DL (8.5-10.1); CREATININE 0.72 MG/DL (0.50-1.00)
[2017-12-31 13:15] VITALS: BP 134/60; PULSE 76; RESP 16; TEMP 98.1; O2SAT 92
--- NOTE | 2017-12-31 13:24 | PD.CONS ---
History of Present Illness Service Infectious Disease Consult Requested By Dr Veronica Reason for Consult Evaluate patient with positive blood culture Primary Care Physician David Hanley MD Diagnoses: History of Present Illness Patient seen and examined. Records reviewed. Patient is not a good historian Patient is a 71-year-old female, brought to the hospital for further evaluation of nausea vomiting and diarrhea. She has been confused in the ED, and it's unclear what her baseline mental status is. Since admission she has not had any nausea or vomiting. She had 2 episodes of low-grade temp. Straight catheterization was done and it showed pyuria. Culture is growing Citrobacter. There were 2 blood cultures done in the ED and they are now reported as growing coag-negative staph. Patient has no line or hardware. She has been on Rocephin. Her white count was initially 13,000 and it's down to normal. Chest x-ray had some chronic perihilar infiltrates. CT has shown an old infarct. Infectious disease consultation is requested to evaluate the patient with positive blood culture. 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 COPD DM Anxiety and Depression Past Surgical History Cholecystectomy Endarterectomy Cataract Surgery Active Ordered Medications Current Medications Medications (Trade) Dose Ordered Sig/Samuel Route Start Time Stop Time Status Last Admin Ceftriaxone Sodium 1000 mg/ Sodium Chloride 100 ml @ 200 mls/hr Q24H IV 12/30/17 01:00 12/31/17 00:11 Sodium Chloride 1,000 ml @ 100 mls/hr Q10H IV 12/29/17 01:15 12/30/17 06:35 (NS Flush) 2 ml UNSCH PRN IV FLUSH 12/29/17 01:15 (NS Flush) 2 ml BID IV FLUSH 12/29/17 09:00 12/31/17 09:00 (Tylenol) 650 mg Q4H PRN PO 12/29/17 01:15 (Zofran Inj) 4 mg Q6H PRN IVP 12/29/17 01:15 (Heparin Inj) 5,000 units Q8H SQ 12/29/17 01:15 12/31/17 09:26 (Narcan Inj) 0.4 mg UNSCH PRN IV PUSH 12/29/17 01:15 (Margie-Colace) 1 tab BID PO 12/29/17 09:00 12/30/17 20:05 (Milk Of Magnesia Liq) 30 ml Q12H PRN PO 12/29/17 01:15 (Senokot) 17.2 mg Q12H PRN PO 12/29/17 01:15 (Dulcolax Supp) 10 mg DAILY PRN RECTAL 12/29/17 01:15 (Lactulose Liq) 30 ml DAILY PRN PO 12/29/17 01:15 (Coreg) 25 mg BID PO 12/29/17 09:00 12/31/17 09:24 (CeleXA) 20 mg DAILY PO 12/29/17 09:00 12/31/17 09:23 (Apresoline) 100 mg BID PO 12/29/17 09:00 12/31/17 09:23 (Synthroid) 112 mcg DAILY@0700 PO 12/29/17 07:00 12/31/17 05:45 (Prinivil) 40 mg DAILY PO 12/29/17 09:00 12/31/17 09:23 (Pravachol) 10 mg DAILY PO 12/29/17 09:00 12/31/17 09:00 (D50w (Vial) Inj) 50 ml UNSCH PRN IV PUSH 12/29/17 01:30 (Glucagon Inj) 1 mg UNSCH PRN OTHER 12/29/17 01:30 (NovoLOG SUPPLEMENTAL SCALE) 1 ACHS SLIDING SCALE SQ 12/29/17 08:00 12/29/17 12:00 Family History Not known Social History No smoking No alcohol abuse No illicit drugs Physical Exam Vital Signs Vital Signs Date Time Temp Pulse Resp B/P (MAP) Pulse Ox O2 Delivery O2 Flow Rate FiO2 12/31/17 09:20 99.6 77 18 151/67 (95) 92 12/31/17 05:37 99.5 89 17 158/70 (99) 93 12/31/17 00:20 99.8 81 18 140/62 (88) 93 12/30/17 20:26 98.3 69 18 148/91 (110) 94 12/30/17 15:59 98.1 76 18 146/63 (90) 94 Physical Exam GENERAL: Patient is a well-nourished, well-developed female, awake and alert , not in respiratory distress.Cant tell me year, and where she is SKIN: Warm and dry. No generalized rash, no ecchymoses and no evidence of embolic lesions. HEAD: Atraumatic. Normocephalic. No temporal wasting, or tenderness. EYES: [place] conjunctiva. No petechia or hemorrhage. Pupils equal, round and reactive to light. Extraocular movements full and intact. No scleral icterus. No injection or drainage. EARS, NOSE AND THROAT: Nose without bleeding or purulent nasal discharge. No sinus tenderness. Mucous membranes pink and moist. No oral lesions noted. No exudate. No oral thrush. NECK: Trachea midline. Supple and not tender, no meningeal signs CARDIOVASCULAR: Regular rate and rhythm. Has systolic murmur in LSB and base of the heart RESPIRATORY: Clear to auscultation. Breath sounds equal bilaterally. No rales , wheezing or rhonchi ABDOMEN: Soft, non-tender, nondistended. Bowel sounds present and normoactive. No guarding. No rebound. No organomegaly. EXTREMITIES: No clubbing, cyanosis, or edema. No joint effusion, has good ROM. No calf tenderness. Well perfused and warm. NEUROLOGICAL: Awake and alert. Cranial nerves grossly intact. RUE contracted and rigid. Motor strength BLE seems symmetrical PSYCHIATRIC: Normal affect, calm and cooperative. LINE: No evidence of infection Laboratory Laboratory Tests Test 12/31/17 08:47 White Blood Count 8.1 Red Blood Count 3.96 Hemoglobin 12.2 Hematocrit 35.6 Mean Corpuscular Volume 89.9 Mean Corpuscular Hemoglobin 30.7 Mean Corpuscular Hemoglobin Concent 34.2 Red Cell Distribution Width 13.0 Platelet Count 167 Mean Platelet Volume 8.9 Neutrophils (%) (Auto) 70.0 Lymphocytes (%) (Auto) 11.3 Monocytes (%) (Auto) 14.0 Eosinophils (%) (Auto) 3.9 Basophils (%) (Auto) 0.8 Neutrophils # (Auto) 5.7 Lymphocytes # (Auto) 0.9 Monocytes # (Auto) 1.1 Eosinophils # (Auto) 0.3 Basophils # (Auto) 0.1 CBC Comment DIFF FINAL Differential Comment Blood Urea Nitrogen 12 Creatinine 0.72 Random Glucose 132 Calcium Level 8.5 Sodium Level 141 Potassium Level 3.6 Chloride Level 106 Carbon Dioxide Level 25.4 Anion Gap 10 Estimat Glomerular Filtration Rate 79 Date/Time Source Procedure Growth Status 12/29/17 01:15 Blood Peripheral Aerobic Blood Culture - Preliminary Staph Sp Coagulase Negative Resulted 12/29/17 01:15 Blood Peripheral Anaerobic Blood Culture - Preliminary NO GROWTH IN 2 DAYS Resulted 12/28/17 23:48 Urine Catheterized Urine Urine Culture - Final Citrobacter Freundii Complete Result Diagram: 12/31/17 0847 12/31/17 0847 Imaging RADIOLOGY STUDIES/FILMS REVIEWED Last Impressions Head CT 12/28/172018 Signed Impressions: Service Date/Time: Thursday, December 28, 2017 20:58 - CONCLUSION: 1. No acute abnormality demonstrated. 2. Large, old left parietal lobe infarct. 3. Atrophy and chronic white matter changes. Ede Barraza MD Chest X-Ray 12/28/172018 Signed Impressions: Service Date/Time: Thursday, December 28, 2017 20:48 - CONCLUSION: Chronic perihilar interstitial opacities. No acute infiltrates seen. Ede Barraza MD Assessment and Plan Assessment and Plan IMPRESSION Possible sepsis on admission, with fever, leukocytosis, ?worse mental status UTI, CitroBC with Coag Neg Staph, ?significance - no hardware, no line - temps better, WBC better Hx CVA RECOMMENDATION Repeat 2 BC Follow C/S Continue Rocephin Follow temps Monitor progress Will determine course of Rx once work-up is completed I will follow along with you Thank you for this consultation Jadyn Manzo MD Dec 31, 2017 13:24
--- NOTE | 2017-12-31 15:48 | HHI.PR ---
Subjective Remarks Patient continues pleasant. Tells me she is feeling all right. Calls to son go to voicedcil Objective Vital Signs Date Time Temp Pulse Resp B/P (MAP) Pulse Ox O2 Delivery O2 Flow Rate FiO2 12/31/17 13:15 98.1 76 16 134/60 (84) 92 12/31/17 09:20 99.6 77 18 151/67 (95) 92 12/31/17 05:37 99.5 89 17 158/70 (99) 93 12/31/17 00:20 99.8 81 18 140/62 (88) 93 12/30/17 20:26 98.3 69 18 148/91 (110) 94 12/30/17 15:59 98.1 76 18 146/63 (90) 94 I/O 12/30/17 12/30/17 12/30/17 12/31/17 12/31/17 12/31/17 07:00 15:00 23:00 07:00 15:00 23:00 Intake Total 220 ml 480 ml 120 ml Balance 220 ml 480 ml 120 ml Intake Oral 120 ml 480 ml 120 ml IV Total 100 ml # Voids 2 3 3 # Bowel Movements 1 1 Result Diagram: 12/31/17 0847 12/31/17 0847 Objective Remarks GENERAL: patient sitting up in bed. Appears comfortable. Pleasant and cooperative. Oriented to place, not to year. SKIN: Warm and dry. HEAD: Normocephalic. EYES: No scleral icterus. No injection or drainage. NECK: Supple, trachea midline. No JVD. CARDIOVASCULAR: Regular rate and rhythm without murmurs, gallops, or rubs. RESPIRATORY: Breath sounds equal bilaterally. No accessory muscle use. GASTROINTESTINAL: Abdomen soft, non-tender, nondistended. MUSCULOSKELETAL: No cyanosis, or edema. BACK: Nontender without obvious deformity. No CVA tenderness. A/P Assessment and Plan //Altered mental status. Unknown baseline likely chronic dementia based on CT scan. Unclear etiology Head CT significant for large, old left parietal lobe infarct, personally reviewed. No acute findings. Likely secondary to UTI Baseline unknown, patient's son was called and a message was left however he never returned call If patient's mental status does not return to baseline, patient may benefit from additional imaging and neurology consult = Unknown baseline. Suspect patient has chronic dementia based on CT scan. //UTI UA consistent with UTI Leukocytosis Urine/blood cultures pending Rocephin IV fluids -Growing gram-negative shalom Follow up cultures. = 12/31. Citrobacter on urine culture. Continue antibiotics //Gram-positive bacteremia. ID consulted. Repeat blood cultures. Follow-up sensitivities. Echocardiogram pending. // Hypertension/COPD/anxiety/depression Continue home medication //Diabetes mellitus Sliding scale insulin Monitor blood glucose FEN Heart healthy diet Electrolytes: Monitor and replete when necessary Heparin Discharge Planning PT recommends home health although she will need supervision at home due to what appears to be chronic dementia. awaiting callback from son Pending workup for bacteremia. ID following Alejandro Veronica MD Dec 31, 2017 15:48
[2017-12-31 16:00] VITALS: BP 130/76; PULSE 82; RESP 18; TEMP 98.5; O2SAT 94
[2017-12-31 20:34] VITALS: BP 168/76; PULSE 77; RESP 18; TEMP 98.1; O2SAT 94
[2017-12-31 23:01] LABS: ALBUMIN 2.9 GM/DL (3.4-5.0); DIRECT BILIRUBIN ADULT 0.2 MG/DL (0.0-0.2); FREE T4 1.7 NG/DL (0.76-1.46); INDIRECT BILIRUBIN 0.5 MG/DL (0.0-0.8); TOTAL BILIRUBIN ADULT 0.7 MG/DL (0.2-1.0); TOTAL PROTEIN 6.5 GM/DL (6.4-8.2)
[2018-01-01 00:17] VITALS: BP 141/63; PULSE 80; RESP 18; TEMP 99; O2SAT 93
[2018-01-01] MEDS: cefTRIAXone INJ 1,000 MG in SODIUM CHLORIDE 0.9% INJ 100 ML IV SCH (01:30)
[2018-01-01] MEDS: HEPARIN SODIUM - SQ 10,000 UNITS/ML VIAL SQ SCH ×3 (01:32→17:18)
[2018-01-01 04:51] VITALS: BP 157/65; PULSE 82; RESP 18; TEMP 98.6; O2SAT 93
[2018-01-01] MEDS: LEVOTHYROXINE SODIUM 112 MCG TAB PO SCH (06:39)
[2018-01-01] MEDS: INSULIN ASPART SUPPLEMENTAL SCALE SQ SCH ×4 (08:00→20:42)
[2018-01-01] MEDS: CITALOPRAM HYDROBROMIDE 20 MG TAB PO SCH (08:55)
[2018-01-01] MEDS: hydrALAZINE HCL 100 MG TAB PO SCH ×2 (08:55→20:42)
[2018-01-01 08:56] VITALS: BP 148/62; PULSE 81; RESP 19; TEMP 98.5; O2SAT 90
[2018-01-01] MEDS: DOCUSATE SODIUM 50 MG/SENNA 8.6 MG TAB PO SCH ×2 (08:56→20:42)
[2018-01-01] MEDS: CARVEDILOL 12.5 MG TAB PO SCH ×2 (08:56→20:42)
[2018-01-01] MEDS: LISINOPRIL 20 MG TAB PO SCH (08:57)
[2018-01-01] MEDS: PRAVASTATIN SOD 10 MG TAB PO SCH (09:00)
[2018-01-01] MEDS: SODIUM CHLORIDE 0.9% FLUSH 10 ML FLUSH IV FLUSH SCH ×2 (09:00→20:43)
--- NOTE | 2018-01-01 12:09 | ECHRPT ---
Indication: ENDOCARDITIS CONCLUSIONS Normal left ventricular size. Wall thickness is normal. The left ventricular systolic function is normal with an estimated ejection fraction in the range of 55-60%. The left atrial size is mildly dilated. [id number] mitral valve regurgitation. There is mild tricuspid valve regurgitation. The estimated pulmonary arterial pressure is 59.6 mmHg. BP: 157 / 65 HR: 82 Rhythm: Sinus MEASUREMENTS (Male / Female) Normal Values Technical Quality:Fair 2D ECHO LV Diastolic Diameter PLAX 4.8 cm 4.2 - 5.9 / 3.9 - 5.3 cm LV Systolic Diameter PLAX 2.9 cm IVS Diastolic Thickness 0.9 cm 0.6 - 1.0 / 0.6 - 0.9 cm LVPW Diastolic Thickness 0.8 cm 0.6 - 1.0 / 0.6 - 0.9 cm LV Relative Wall Thickness 0.4 RV Internal Dim ED PLAX 3.5 cm LVOT Diameter 1.9 cm LA Systolic Diameter LX 4.4 cm 3.0 - 4.0 / 2.7 - 3.8 cm M-MODE Aortic Root Diameter MM 2.9 cm LA Systolic Diameter MM 3.3 cm LA Ao Ratio MM 1.1 AV Cusp Separation MM 2.1 cm DOPPLER AV Peak Velocity 182.0 cm/s AV Peak Gradient 13.2 mmHg LVOT Peak Velocity 109.0 cm/s LVOT Peak Gradient 4.8 mmHg AV Area Cont Eq pk 1.7 cm MV Area PHT 3.9 cm Mitral E Point Velocity 90.3 cm/s Mitral A Point Velocity 94.8 cm/s Mitral E to A Ratio 1.0 LV E' Lateral Velocity 8.3 cm/s Mitral E to LV E' Lateral Ratio 10.9 LV E' Septal Velocity 5.8 cm/s Mitral E to LV E' Septal Ratio 15.7 TR Peak Velocity 352.0 cm/s TR Peak Gradient 49.6 mmHg Right Atrial Pressure 10.0 mmHg Pulmonary Artery Systolic Pressu 59.6 mmHg Right Ventricular Systolic Press 59.6 mmHg FINDINGS LEFT VENTRICLE Normal left ventricular size. Wall thickness is normal. The left ventricular systolic function is normal with an estimated ejection fraction in the range of 55-60%. RIGHT VENTRICLE Normal right ventricular size and systolic function. LEFT ATRIUM The left atrial size is mildly dilated. RIGHT ATRIUM The right atrial size is normal. ATRIAL SEPTUM Normal atrial septal thickness without atrial level shunting by limited color doppler interrogation. AORTA The aortic root and proximal ascending aorta are normal in size on limited imaging. MITRAL VALVE [id number] mitral valve regurgitation. AORTIC VALVE Trileaflet aortic valve. No aortic valve stenosis or regurgitation. TRICUSPID VALVE There is mild tricuspid valve regurgitation. The estimated pulmonary arterial pressure is 59.6 mmHg. PULMONARY VALVE No pulmonary valve regurgitation or stenosis. VESSELS The inferior vena cava is normal in size. PERICARDIUM No pericardial effusion. Johan Crocker MD, FACC (Electronically Signed) Final Date:01 January 2018 12:08
[2018-01-01 12:24] VITALS: BP 136/62; PULSE 74; RESP 16; TEMP 98.2; O2SAT 93
--- NOTE | 2018-01-01 15:39 | HHI.PR ---
Subjective Remarks 71-year-old female with a PMH of HTN, h/o CVA w/ Expressive Aphasia, COPD, DM, Anxiety and Depression who was brought to the emergency department for the evaluation of nausea, vomiting and diarrhea. The patient seems somewhat altered although her baseline is unknown. Previous attempts to contact her son were unsuccessful. She states that she "needs to have a cigarette." And that her "stroke has been getting worse" for approximately one month. The patient know she is in [place]. Does not know the year or her exact location. Patient complains of right sided weakness that she believes is worsening. She is unable to answer any additional questions. 3 Patient awake, tells me she feels fine, however appears generally confused 12-31 Patient continues pleasant. Tells me she is feeling all right. Calls to son go to voicemail 01-01 states she lives with her son no current complaints still some confusion has left UPPER EXTREMITY AND LEFT LE WEAKNESS Patient may need sniff Await infectious disease clear AM LABS Objective Vitals Vital Signs Date Time Temp Pulse Resp B/P (MAP) Pulse Ox O2 Delivery O2 Flow Rate FiO2 01/01/18 12:24 98.2 74 16 136/62 (86) 93 01/01/18 08:56 98.5 81 19 148/62 (90) 90 01/01/18 04:51 98.6 82 18 157/65 (95) 93 01/01/18 00:17 99.0 80 18 141/63 (89) 93 12/31/17 20:34 98.1 77 18 168/76 (106) 94 12/31/17 16:00 98.5 82 18 130/76 (94) 94 I/O 12/31/17 12/31/17 12/31/17 01/01/18 01/01/18 01/01/18 07:00 15:00 23:00 07:00 15:00 23:00 Intake Total 120 ml 460 ml Balance 120 ml 460 ml Intake Oral 120 ml 360 ml IV Total 100 ml # Voids 3 2 # Bowel Movements 1 Result Diagram: 12/31/17 0847 12/31/17 0847 Other Results Laboratory Tests Test 12/31/17 08:47 01/01/18 05:14 White Blood Count 8.1 TH/MM3 Red Blood Count 3.96 MIL/MM3 Hemoglobin 12.2 GM/DL Hematocrit 35.6 % Mean Corpuscular Volume 89.9 FL Mean Corpuscular Hemoglobin 30.7 PG Mean Corpuscular Hemoglobin Concent 34.2 % Red Cell Distribution Width 13.0 % Platelet Count 167 TH/MM3 Mean Platelet Volume 8.9 FL Neutrophils (%) (Auto) 70.0 % Lymphocytes (%) (Auto) 11.3 % Monocytes (%) (Auto) 14.0 % Eosinophils (%) (Auto) 3.9 % Basophils (%) (Auto) 0.8 % Neutrophils # (Auto) 5.7 TH/MM3 Lymphocytes # (Auto) 0.9 TH/MM3 Monocytes # (Auto) 1.1 TH/MM3 Eosinophils # (Auto) 0.3 TH/MM3 Basophils # (Auto) 0.1 TH/MM3 CBC Comment DIFF FINAL Differential Comment Blood Urea Nitrogen 12 MG/DL Creatinine 0.72 MG/DL Random Glucose 132 MG/DL Calcium Level 8.5 MG/DL Sodium Level 141 MEQ/L Potassium Level 3.6 MEQ/L Chloride Level 106 MEQ/L Carbon Dioxide Level 25.4 MEQ/L Anion Gap 10 MEQ/L Estimat Glomerular Filtration Rate 79 ML/MIN Total Bilirubin 0.7 MG/DL Direct Bilirubin 0.2 MG/DL Indirect Bilirubin 0.5 MG/DL Aspartate Amino Transf (AST/SGOT) 20 U/L Alanine Aminotransferase (ALT/SGPT) 24 U/L Alkaline Phosphatase 70 U/L B-Type Natriuretic Peptide 156 PG/ML Total Protein 6.5 GM/DL Albumin 2.9 GM/DL Free Thyroxine 1.70 NG/DL Total Triiodothyronine 77 NG/DL Imaging Last Impressions Head CT 12/28/172018 Signed Impressions: Service Date/Time: Thursday, December 28, 2017 20:58 - CONCLUSION: 1. No acute abnormality demonstrated. 2. Large, old left parietal lobe infarct. 3. Atrophy and chronic white matter changes. Ede Barraza MD Chest X-Ray 12/28/172018 Signed Impressions: Service Date/Time: Thursday, December 28, 2017 20:48 - CONCLUSION: Chronic perihilar interstitial opacities. No acute infiltrates seen. Ede Barraza MD Objective Remarks GENERAL: Awake and alert talkative and cooperative oriented times person SKIN: Warm and dry. HEAD: Atraumatic. Normocephalic. EYES: Pupils equal and round. No scleral icterus. No injection or drainage. ENT: No nasal bleeding or discharge. Mucous membranes pink and moist. NECK: Trachea midline. No JVD. Supple CARDIOVASCULAR: Regular rate and rhythm. S1-S2 no S3 or S4 RESPIRATORY: No accessory muscle use. Clear to auscultation. Breath sounds equal bilaterally. GASTROINTESTINAL: Abdomen soft, non-tender, nondistended. Hepatic and splenic margins not palpable. MUSCULOSKELETAL: Extremities without clubbing, cyanosis, or edema. No obvious deformities. Right hand is contracted and weak right lower extremity is weak NEUROLOGICAL: Awake and alert. No obvious cranial nerve deficits. Motor grossly within normal limits. 4 out of 5 muscle strength in the arms and legs on the left, 3 out of 5 muscle strength in the right arms and legs. Normal speech. PSYCHIATRIC: INAppropriate mood and affect; insight and judgment ABnormal. Medications and IVs Current Medications Sodium Chloride (NS Flush) 2 ml UNSCH PRN IV FLUSH FLUSH AFTER USING IV ACCESS ; Start 12/28/17 at 20:30; Stop 12/30/17 at 11:30; Status DC Ceftriaxone Sodium 1000 mg/ Sodium Chloride 100 ml @ 200 mls/hr ONCE ONCE IV Last administered on 12/29/17at 01:29; Start 12/29/17 at 01:00; Stop 12/29/17 at 01:29; Status DC Ceftriaxone Sodium 1000 mg/ Sodium Chloride 100 ml @ 200 mls/hr Q24H IV Last administered on 01/01/18at 01:30; Start 12/30/17 at 01:00 Sodium Chloride 1,000 ml @ 100 mls/hr Q10H IV Last administered on 12/30/17at 06:35; Start 12/29/17 at 01:15; Stop 12/31/17 at 15:31; Status DC Sodium Chloride (NS Flush) 2 ml UNSCH PRN IV FLUSH FLUSH AFTER USING IV ACCESS ; Start 12/29/17 at 01:15 Sodium Chloride (NS Flush) 2 ml BID IV FLUSH Last administered on 01/01/18at 09: 00; Start 12/29/17 at 09:00 Acetaminophen (Tylenol) 650 mg Q4H PRN PO TEMP > 100.4; Start 12/29/17 at 01:15 Ondansetron HCl (Zofran Inj) 4 mg Q6H PRN IVP NAUSEA OR VOMITING; Start at 01:15 Heparin Sodium (Porcine) (Heparin Inj) 5,000 units Q8H SQ Last administered on 01/01/18at 08:57; Start 12/29/17 at 01:15 Naloxone HCl (Narcan Inj) 0.4 mg UNSCH PRN IV PUSH SEE LABEL COMMENTS; Start at 01:15 Senna/Docusate Sodium (Margie-Colace) 1 tab BID PO Last administered on at 08:56; Start 12/29/17 at 09:00 Magnesium Hydroxide (Milk Of Magnesia Liq) 30 ml Q12H PRN PO Mild constipation ; Start 12/29/17 at 01:15 Sennosides (Senokot) 17.2 mg Q12H PRN PO Moderate constipation; Start 12/29/17 at 01:15 Bisacodyl (Dulcolax Supp) 10 mg DAILY PRN RECTAL SEVERE CONSITIPATION/ IF NPO ; Start 12/29/17 at 01:15 Lactulose (Lactulose Liq) 30 ml DAILY PRN PO SEVERE CONSITIPATION/ IF PO; Start 12/29/17 at 01:15 Carvedilol (Coreg) 25 mg BID PO Last administered on 01/01/18 08:56; Start at 09:00 Citalopram Hydrobromide (CeleXA) 20 mg DAILY PO Last administered on 01/01/18 08:55; Start 12/29/17 at 09:00 Hydralazine HCl (Apresoline) 100 mg BID PO Last administered on 01/01/18 08:55 ; Start 12/29/17 at 09:00 Levothyroxine Sodium (Synthroid) 112 mcg DAILY@0700 PO Last administered on at 06:39; Start 12/29/17 at 07:00 Lisinopril (Prinivil) 40 mg DAILY PO Last administered on 01/01/18 08:57; Start 12/29/17 at 09:00 Pravastatin Sodium (Pravachol) 10 mg DAILY PO Last administered on 01/01/18at 09 :00; Start 12/29/17 at 09:00 Dextrose (D50w (Vial) Inj) 50 ml UNSCH PRN IV PUSH HYPOGLYCEMIA-SEE COMMENTS; Start 12/29/17 at 01:30 Glucagon (Glucagon Inj) 1 mg UNSCH PRN OTHER HYPOGLYCEMIA-SEE COMMENTS; Start 12/29/17 at 01:30 Insulin Aspart (NovoLOG SUPPLEMENTAL SCALE) 1 ACHS SLIDING SCALE SQ Last administered on 12/29/17at 12:00; Start 12/29/17 at 08:00 Etomidate (Amidate Inj) 40 mg STK-MED ONCE .ROUTE ; Start 12/29/17 at 09:02; Stop 12/29/17 at 09:03; Status DC Succinylcholine Chloride (Quelicin Inj) 200 mg STK-MED ONCE .ROUTE ; Start 12/29 at 09:02; Stop 12/29/17 at 09:03; Status DC A/P Assessment and Plan //Altered mental status. Unknown baseline likely chronic dementia based on CT scan. Unclear etiology Head CT significant for large, old left parietal lobe infarct, personally reviewed. No acute findings. Likely secondary to UTI Baseline unknown, patient's son was called and a message was left however he never returned call If patient's mental status does not return to baseline, patient may benefit from additional imaging and neurology consult = Unknown baseline. Suspect patient has chronic dementia based on CT scan. //UTI UA consistent with UTI Leukocytosis Urine/blood cultures pending Rocephin IV fluids -Growing gram-negative shalom Follow up cultures. = 12/31. Citrobacter on urine culture. Continue antibiotics Continue on Rocephin per infectious disease //Gram-positive bacteremia. ID consulted. Repeat blood cultures. Follow-up sensitivities. Echocardiogram reviewed appears stable // Hypertension/COPD/anxiety/depression Continue home medication //Diabetes mellitus Sliding scale insulin Monitor blood glucose FEN Heart healthy diet Electrolytes: Monitor and replete when necessary Heparin Will probably need SNF if she is able to go to [facility] Cannot reach family at this time Discharge Planning Pending infectious disease clearance managed Rolando Mcclure DO Jan 01, 2018 15:39
[2018-01-01 18:56] VITALS: BP 135/70; PULSE 76; RESP 18; TEMP 97.9; O2SAT 94
[2018-01-01 20:00] VITALS: BP 134/61; PULSE 74; RESP 20; TEMP 98; O2SAT 93
[2018-01-02] VITALS: BP 130/70; PULSE 81; RESP 20; TEMP 97.8; O2SAT 96
[2018-01-02] MEDS: cefTRIAXone INJ 1,000 MG in SODIUM CHLORIDE 0.9% INJ 100 ML IV SCH (01:13)
[2018-01-02] MEDS: HEPARIN SODIUM - SQ 10,000 UNITS/ML VIAL SQ SCH ×3 (01:18→16:50)
[2018-01-02 04:00] VITALS: BP 180/75; PULSE 75; RESP 20; TEMP 97; O2SAT 98
[2018-01-02] MEDS: LEVOTHYROXINE SODIUM 112 MCG TAB PO SCH (05:20)
[2018-01-02 07:56] LABS: AUTOMATED NEUTROPHIL # 5.2 TH/MM3 (1.8-7.7); BASOPHIL # 0.1 TH/MM3 (0-0.2); BASOPHIL % 0.9 % (0.0-2.0); EOSINOPHIL # 0.5 TH/MM3 (0-0.4); HEMATOCRIT 34.7 % (35.0-46.0); HEMOGLOBIN 11.8 GM/DL (11.6-15.3); LYMPH % 13.3 % (9.0-44.0); LYMPHOCYTE # 1.1 TH/MM3 (1.0-4.8); MEAN CELL VOLUME 89.8 FL (80.0-100.0); MEAN CORPUSCULAR HEMOGLOBIN 30.4 PG (27.0-34.0); MEAN CORPUSCULAR HGB CONC 33.8 % (32.0-36.0); MEAN PLATELET VOLUME 8.9 FL (7.0-11.0); MONOCYTE # 1.1 TH/MM3 (0-0.9); NEUT % 65.8 % (16.0-70.0); PLATELET COUNT 191 TH/MM3 (150-450); RED BLOOD COUNT 3.87 MIL/MM3 (4.00-5.30); RED CELL DISTRIBUTION WIDTH 12.7 % (11.6-17.2)
[2018-01-02] MEDS: INSULIN ASPART SUPPLEMENTAL SCALE SQ SCH ×4 (08:00→21:25)
[2018-01-02 08:21] VITALS: BP 124/63; PULSE 61; RESP 18; TEMP 98.3; O2SAT 94
[2018-01-02 08:46] LABS: ALBUMIN 2.6 GM/DL (3.4-5.0); AST (GOT) 25 U/L (15-37); BICARBONATE 27.7 MEQ/L (21.0-32.0); BLOOD UREA NITROGEN 11 MG/DL (7-18); CALCIUM 8.5 MG/DL (8.5-10.1); CHLORIDE 105 MEQ/L (98-107); CREATININE 0.57 MG/DL (0.50-1.00); GLOMERULAR FILTRATION RATE 104 ML/MIN (>89); GLUCOSE,RANDOM 132 MG/DL (74-106); MAGNESIUM 1.6 MG/DL (1.5-2.5); SODIUM (NA) 141 MEQ/L (136-145)
[2018-01-02 08:47] LABS: ALT (GPT) 32 U/L (10-53); PHOSPHORUS 3.4 MG/DL (2.5-4.9)
[2018-01-02 08:56] LABS: ALKALINE PHOSPHATASE 77 U/L (45-117); FREE T4 1.76 NG/DL (0.76-1.46); TOTAL BILIRUBIN ADULT 0.4 MG/DL (0.2-1.0); TOTAL PROTEIN 6.4 GM/DL (6.4-8.2)
[2018-01-02] MEDS: SODIUM CHLORIDE 0.9% FLUSH 10 ML FLUSH IV FLUSH SCH ×2 (09:00→21:00)
[2018-01-02] MEDS: CITALOPRAM HYDROBROMIDE 20 MG TAB PO SCH (09:00)
[2018-01-02] MEDS: CARVEDILOL 12.5 MG TAB PO SCH ×2 (09:00→21:13)
[2018-01-02] MEDS: LISINOPRIL 20 MG TAB PO SCH (09:01)
[2018-01-02] MEDS: PRAVASTATIN SOD 10 MG TAB PO SCH (09:01)
[2018-01-02] MEDS: DOCUSATE SODIUM 50 MG/SENNA 8.6 MG TAB PO SCH ×2 (09:02→21:00)
[2018-01-02] MEDS: hydrALAZINE HCL 100 MG TAB PO SCH ×2 (09:02→21:13)
--- NOTE | 2018-01-02 09:51 | HHI.IDPN ---
Subjective Subjective Remarks Patient is a 71-year-old female, brought to the hospital for further evaluation of nausea vomiting and diarrhea. She has been confused in the ED, and it's unclear what her baseline mental status is. Since admission she has not had any nausea or vomiting. She had 2 episodes of low-grade temp. Straight catheterization was done and it showed pyuria. Culture is growing Citrobacter. There were 2 blood cultures done in the ED and they are now reported as growing coag-negative staph. Patient has no line or hardware. She has been on Rocephin. Her white count was initially 13,000 and it's down to normal. Chest x-ray had some chronic perihilar infiltrates. CT has shown an old infarct. Infectious disease consultation is requested to evaluate the patient with positive blood culture. Notes reviewed No fever Blood culture with different coag-negative staph No new complaints Echo no vegetation Repeat blood cultures okay Antibiotics Rocephin Current Medications Medications (Trade) Dose Ordered Sig/Samuel Route Start Time Stop Time Status Last Admin Ceftriaxone Sodium 1000 mg/ Sodium Chloride 100 ml @ 200 mls/hr Q24H IV 12/30/17 01:00 01/02/18 01:13 (NS Flush) 2 ml UNSCH PRN IV FLUSH 12/29/17 01:15 (NS Flush) 2 ml BID IV FLUSH 12/29/17 09:00 01/02/18 09:00 (Tylenol) 650 mg Q4H PRN PO 12/29/17 01:15 (Zofran Inj) 4 mg Q6H PRN IVP 12/29/17 01:15 (Heparin Inj) 5,000 units Q8H SQ 12/29/17 01:15 01/02/18 09:01 (Narcan Inj) 0.4 mg UNSCH PRN IV PUSH 12/29/17 01:15 (Margie-Colace) 1 tab BID PO 12/29/17 09:00 01/01/18 20:42 (Milk Of Magnesia Liq) 30 ml Q12H PRN PO 12/29/17 01:15 (Senokot) 17.2 mg Q12H PRN PO 12/29/17 01:15 (Dulcolax Supp) 10 mg DAILY PRN RECTAL 12/29/17 01:15 (Lactulose Liq) 30 ml DAILY PRN PO 12/29/17 01:15 (Coreg) 25 mg BID PO 12/29/17 09:00 01/02/18 09:00 (CeleXA) 20 mg DAILY PO 12/29/17 09:00 01/02/18 09:00 (Apresoline) 100 mg BID PO 12/29/17 09:00 01/02/18 09:02 (Synthroid) 112 mcg DAILY@0700 PO 12/29/17 07:00 01/02/18 05:20 (Prinivil) 40 mg DAILY PO 12/29/17 09:00 01/02/18 09:01 (Pravachol) 10 mg DAILY PO 12/29/17 09:00 01/02/18 09:01 (D50w (Vial) Inj) 50 ml UNSCH PRN IV PUSH 12/29/17 01:30 (Glucagon Inj) 1 mg UNSCH PRN OTHER 12/29/17 01:30 (NovoLOG SUPPLEMENTAL SCALE) 1 ACHS SLIDING SCALE SQ 12/29/17 08:00 01/01/18 17:00 Lines PIV with no evidence of infection Past Medical History HTN 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 Vital Signs Date Time Temp Pulse Resp B/P (MAP) Pulse Ox O2 Delivery O2 Flow Rate FiO2 01/02/18 08:21 98.3 61 18 124/63 (83) 94 01/02/18 04:00 97.0 75 20 180/75 (110) 98 01/02/18 00:00 97.8 81 20 130/70 (90) 96 01/01/18 20:00 98.0 74 20 134/61 (85) 93 01/01/18 18:56 97.9 76 18 135/70 (91) 94 01/01/18 12:24 98.2 74 16 136/62 (86) 93 . Laboratory Tests Test 01/02/18 07:12 White Blood Count 8.0 TH/MM3 Red Blood Count 3.87 MIL/MM3 Hemoglobin 11.8 GM/DL Hematocrit 34.7 % Mean Corpuscular Volume 89.8 FL Mean Corpuscular Hemoglobin 30.4 PG Mean Corpuscular Hemoglobin Concent 33.8 % Red Cell Distribution Width 12.7 % Platelet Count 191 TH/MM3 Mean Platelet Volume 8.9 FL Neutrophils (%) (Auto) 65.8 % Lymphocytes (%) (Auto) 13.3 % Monocytes (%) (Auto) 14.0 % Eosinophils (%) (Auto) 6.0 % Basophils (%) (Auto) 0.9 % Neutrophils # (Auto) 5.2 TH/MM3 Lymphocytes # (Auto) 1.1 TH/MM3 Monocytes # (Auto) 1.1 TH/MM3 Eosinophils # (Auto) 0.5 TH/MM3 Basophils # (Auto) 0.1 TH/MM3 CBC Comment DIFF FINAL Differential Comment Laboratory Tests Test 01/01/18 05:14 01/02/18 07:12 Total Triiodothyronine 77 NG/DL Blood Urea Nitrogen 11 MG/DL Creatinine 0.57 MG/DL Random Glucose 132 MG/DL Total Protein 6.4 GM/DL Albumin 2.6 GM/DL Calcium Level 8.5 MG/DL Phosphorus Level 3.4 MG/DL Magnesium Level 1.6 MG/DL Alkaline Phosphatase 77 U/L Aspartate Amino Transf (AST/SGOT) 25 U/L Alanine Aminotransferase (ALT/SGPT) 32 U/L Total Bilirubin 0.4 MG/DL Sodium Level 141 MEQ/L Potassium Level 3.7 MEQ/L Chloride Level 105 MEQ/L Carbon Dioxide Level 27.7 MEQ/L Anion Gap 8 MEQ/L Estimat Glomerular Filtration Rate 104 ML/MIN Free Thyroxine 1.76 NG/DL Thyroid Stimulating Hormone 3rd Gen 0.690 uIU/ML Microbiology Date/Time Source Procedure Growth Status 01/01/18 05:14 Blood Peripheral Aerobic Blood Culture Pending Received 01/01/18 05:14 Blood Peripheral Anaerobic Blood Culture Pending Received 01/01/18 05:10 Blood Peripheral Aerobic Blood Culture Pending Received 01/01/18 05:10 Blood Peripheral Anaerobic Blood Culture Pending Received Imaging Last Impressions Head CT 12/28/172018 Signed Impressions: Service Date/Time: Thursday, December 28, 2017 20:58 - CONCLUSION: 1. No acute abnormality demonstrated. 2. Large, old left parietal lobe infarct. 3. Atrophy and chronic white matter changes. Ede Barraza MD Chest X-Ray 12/28/172018 Signed Impressions: Service Date/Time: Thursday, December 28, 2017 20:48 - CONCLUSION: Chronic perihilar interstitial opacities. No acute infiltrates seen. Ede Barraza MD Physical Exam GENERAL: awake and alert, not in respiratory distress. SKIN: Warm and dry. No generalized rash, no ecchymoses and no evidence of embolic lesions. HEAD: Atraumatic. Normocephalic. No temporal wasting, or tenderness. EYES: Daisy conjunctiva. No petechia or hemorrhage. Pupils equal, round and reactive to light. Extraocular movements full and intact. No scleral icterus. No injection or drainage. EARS, NOSE AND THROAT: Nose without bleeding or purulent nasal discharge. No sinus tenderness. Mucous membranes pink and moist. No oral lesions noted. No exudate. No oral thrush. NECK: Trachea midline. Supple and not tender, no meningeal signs CARDIOVASCULAR: Regular rate and rhythm. Has systolic murmur in LSB and base of the heart RESPIRATORY: Clear to auscultation. Breath sounds equal bilaterally. No rales , wheezing or rhonchi ABDOMEN: Soft, non-tender, nondistended. Bowel sounds present and normoactive. No guarding. No rebound. No organomegaly. EXTREMITIES: No clubbing, cyanosis, or edema. No joint effusion, has good ROM. No calf tenderness. Well perfused and warm. NEUROLOGICAL: Awake and alert. Cranial nerves grossly intact. RUE contracted and rigid. Motor BLE seems symmetrical PSYCHIATRIC: Normal affect, calm and cooperative. LINE: No evidence of infection Assessment & Plan Remarks IMPRESSION Possible sepsis on admission, with fever, leukocytosis, ?worse mental status, likely due to UTI UTI, Citrobacter BC with 2 different Coag Neg Staph, C/W contaminant - no hardware, no line - temps better, WBC better Hx CVA RECOMMENDATION If repeat 2 BC today negative today, ok to D/C Follow C/S Change Rocephin to ceftin and complete UTI Rx Clinically doing well from ID standpoint Jadyn Manzo MD Jan 02, 2018 09:51
[2018-01-02] MEDS: CEFUROXIME AXETIL 500 MG TAB PO SCH ×2 (10:37→21:13)
[2018-01-02 12:09] VITALS: BP 151/67; PULSE 70; RESP 18; TEMP 98.1; O2SAT 93
[2018-01-02] MEDS ORDERED: RESP: ALBUTEROL 2.5 MG/IPRATROPIUM 0.5 MG NEB (SCH) NEB ONE (14:45)
[2018-01-02 16:15] VITALS: BP 155/72; PULSE 77; RESP 18; TEMP 99; O2SAT 93
[2018-01-02 18:11] LABS: HEMOGLOBIN A1C 5.7 % (4.3-6.0)
--- NOTE | 2018-01-02 18:41 | HHI.PR ---
Subjective Remarks 72-year-old female who presented with altered mental status. She seems alert and oriented today but I have no baseline to compare to. Her only complaint is pain in her hands and feet. Objective Vitals Vital Signs Date Time Temp Pulse Resp B/P (MAP) Pulse Ox O2 Delivery O2 Flow Rate FiO2 01/02/18 16:15 99.0 77 18 155/72 (99) 93 01/02/18 12:09 98.1 70 18 151/67 (95) 93 01/02/18 08:21 98.3 61 18 124/63 (83) 94 01/02/18 04:00 97.0 75 20 180/75 (110) 98 01/02/18 00:00 97.8 81 20 130/70 (90) 96 01/01/18 20:00 98.0 74 20 134/61 (85) 93 01/01/18 18:56 97.9 76 18 135/70 (91) 94 I/O 01/01/18 01/01/18 01/01/18 01/02/18 01/02/18 01/02/18 07:00 15:00 23:00 07:00 15:00 23:00 Intake Total 460 ml 720 ml 660 ml Balance 460 ml 720 ml 660 ml Intake Oral 360 ml 720 ml 660 ml IV Total 100 ml # Voids 2 2 4 4 2 # Bowel Movements 2 Result Diagram: 01/02/1871101/02/18 0712 Objective Remarks GENERAL: Weak, thin SKIN: Warm and dry. HEAD: Normocephalic. EYES: No scleral icterus. No injection or drainage. NECK: Supple, trachea midline. No JVD or lymphadenopathy. CARDIOVASCULAR: Regular rate and rhythm without murmurs, gallops, or rubs. RESPIRATORY: Breath sounds equal bilaterally. No accessory muscle use. GASTROINTESTINAL: Abdomen soft, non-tender, nondistended. EXTREMITIES: No cyanosis, or edema. NEUROLOGICAL: Awake, alert, and oriented x 3. Non-focal. A/P Problem List: (1) Altered mental status ICD Code: R41.82 - Altered mental status, unspecified Status: Acute (2) Urinary tract infection ICD Code: N39.0 - Urinary tract infection, site not specified Status: Acute Assessment and Plan Altered mental status Consider association with UTI Patient seems clear but no baseline for comparison, no family member present Head CT significant for large, old left parietal lobe infarct UTI Continue IV Rocephin Pansensitive Citrobacter on culture Type 2 diabetes Accu-Cheks with sliding scale coverage Diabetic diet Hypertension/COPD/anxiety/depression Continue home medication DVT prophylaxis Heparin Edin Green MD Jan 02, 2018 18:41
[2018-01-02 20:00] VITALS: BP 134/87; PULSE 56; RESP 18; TEMP 97; O2SAT 97
[2018-01-03] VITALS: BP 142/81; PULSE 81; RESP 20; TEMP 98; O2SAT 98
[2018-01-03] MEDS: HEPARIN SODIUM - SQ 10,000 UNITS/ML VIAL SQ SCH ×3 (00:17→16:54)
[2018-01-03 04:00] VITALS: BP 137/86; PULSE 91; RESP 18; TEMP 98.7; O2SAT 97
[2018-01-03] MEDS: LEVOTHYROXINE SODIUM 112 MCG TAB PO SCH (05:51)
[2018-01-03] MEDS: INSULIN ASPART SUPPLEMENTAL SCALE SQ SCH ×4 (08:00→22:16)
[2018-01-03 08:15] VITALS: BP 159/69; PULSE 73; RESP 18; TEMP 98.4; O2SAT 92
[2018-01-03] MEDS: hydrALAZINE HCL 100 MG TAB PO SCH ×2 (09:32→22:15)
[2018-01-03] MEDS: LISINOPRIL 20 MG TAB PO SCH (09:32)
[2018-01-03] MEDS: CITALOPRAM HYDROBROMIDE 20 MG TAB PO SCH (09:33)
[2018-01-03] MEDS: CARVEDILOL 12.5 MG TAB PO SCH ×2 (09:33→22:15)
[2018-01-03] MEDS: PRAVASTATIN SOD 10 MG TAB PO SCH (09:33)
[2018-01-03] MEDS: DOCUSATE SODIUM 50 MG/SENNA 8.6 MG TAB PO SCH ×2 (09:33→21:00)
[2018-01-03] MEDS: CEFUROXIME AXETIL 500 MG TAB PO SCH ×2 (09:33→22:14)
[2018-01-03] MEDS: SODIUM CHLORIDE 0.9% FLUSH 10 ML FLUSH IV FLUSH SCH ×2 (09:34→22:16)
[2018-01-03 12:16] VITALS: BP 115/56; PULSE 71; RESP 18; TEMP 98.5; O2SAT 92
[2018-01-03 16:25] VITALS: BP 129/61; PULSE 75; RESP 18; TEMP 98; O2SAT 93
--- NOTE | 2018-01-03 16:43 | HHI.PR ---
Subjective Remarks Patient's son was at bedside today. He states that his mom has a history of a stroke one year ago. This resulted in mental deficits and right side weakness in upper and lower extremities. Despite this she is ambulatory with use of a walker. He is concerned with her cough and hoarse voice. Objective Vitals Vital Signs Date Time Temp Pulse Resp B/P (MAP) Pulse Ox O2 Delivery O2 Flow Rate FiO2 01/03/18 16:25 98.0 75 18 129/61 (83) 93 01/03/18 12:16 98.5 71 18 115/56 (75) 92 01/03/18 08:15 98.4 73 18 159/69 (99) 92 01/03/18 04:00 98.7 91 18 137/86 (103) 97 01/03/18 00:00 98.0 81 20 142/81 (101) 98 01/02/18 20:00 97.0 56 18 134/87 (103) 97 I/O 01/02/18 01/02/18 01/02/18 01/03/18 01/03/18 01/03/18 07:00 15:00 23:00 07:00 15:00 23:00 Intake Total 660 ml 840 ml Balance 660 ml 840 ml Intake Oral 660 ml 840 ml # Voids 4 4 2 4 4 # Bowel Movements 2 2 Result Diagram: 01/02/18 0712 01/02/18 0712 Objective Remarks GENERAL: Weak, thin SKIN: Warm and dry. HEAD: Normocephalic. EYES: No scleral icterus. No injection or drainage. NECK: Supple, trachea midline. No JVD or lymphadenopathy. CARDIOVASCULAR: Regular rate and rhythm without murmurs, gallops, or rubs. RESPIRATORY: Breath sounds equal bilaterally. No accessory muscle use. GASTROINTESTINAL: Abdomen soft, non-tender, nondistended. EXTREMITIES: No cyanosis, or edema. NEUROLOGICAL: Awake, alert, and oriented x 3. Non-focal. A/P Problem List: (1) Altered mental status ICD Code: R41.82 - Altered mental status, unspecified Status: Acute (2) Urinary tract infection ICD Code: N39.0 - Urinary tract infection, site not specified Status: Acute Assessment and Plan Altered mental status Consider association with UTI Head CT significant for large, old left parietal lobe infarct Son was at bedside and reports that his mom has returned to her baseline UTI Continue IV Rocephin Pansensitive Citrobacter on culture No need for antibiotics upon discharge Cough Son was at bedside and has been very sick for nearly a week He would feel safer if his mom was placed on an antibiotic Z-Han ordered Type 2 diabetes Accu-Cheks with sliding scale coverage Diabetic diet Hypertension/COPD/anxiety/depression Continue home medication DVT prophylaxis Heparin Discharge planning PT evaluation of balance and gait Tomorrow , either home with home health care or to rehab if her gait is unstable Patient has returned to her baseline from a mental standpoint Edin Green MD Jan 03, 2018 16:43
[2018-01-03] MEDS: AZITHROMYCIN 250 MG TAB PO SCH (17:47)
[2018-01-03 20:18] VITALS: BP 142/65; PULSE 62; RESP 17; TEMP 98.2; O2SAT 94
[2018-01-04 00:39] VITALS: BP 151/64; PULSE 76; RESP 18; TEMP 98.5; O2SAT 94
[2018-01-04] MEDS: HEPARIN SODIUM - SQ 10,000 UNITS/ML VIAL SQ SCH ×3 (01:15→16:30)
[2018-01-04 04:55] VITALS: BP 173/70; PULSE 75; RESP 18; TEMP 98.2; O2SAT 94
[2018-01-04] MEDS ORDERED: ENALAPRILAT 2.5 MG/2 ML VIAL IV PUSH PRN (05:45)
[2018-01-04] MEDS: LEVOTHYROXINE SODIUM 112 MCG TAB PO SCH (06:33)
[2018-01-04 08:00] VITALS: BP 146/89; PULSE 73; RESP 18; TEMP 98.5; O2SAT 92
[2018-01-04] MEDS: INSULIN ASPART SUPPLEMENTAL SCALE SQ SCH ×4 (08:00→21:00)
[2018-01-04] MEDS: CEFUROXIME AXETIL 500 MG TAB PO SCH ×2 (08:13→21:55)
[2018-01-04] MEDS: CARVEDILOL 12.5 MG TAB PO SCH ×2 (08:13→21:55)
[2018-01-04] MEDS: LISINOPRIL 20 MG TAB PO SCH (08:13)
[2018-01-04] MEDS: hydrALAZINE HCL 100 MG TAB PO SCH ×2 (08:13→21:55)
[2018-01-04] MEDS: DOCUSATE SODIUM 50 MG/SENNA 8.6 MG TAB PO SCH ×2 (08:13→21:00)
[2018-01-04] MEDS: CITALOPRAM HYDROBROMIDE 20 MG TAB PO SCH (08:13)
[2018-01-04] MEDS: AZITHROMYCIN 250 MG TAB PO SCH (08:13)
[2018-01-04] MEDS: PRAVASTATIN SOD 10 MG TAB PO SCH (08:14)
[2018-01-04] MEDS: SODIUM CHLORIDE 0.9% FLUSH 10 ML FLUSH IV FLUSH SCH ×2 (08:14→21:55)
[2018-01-04] MEDS: ACETAMINOPHEN 500 MG CPLT PO PRN (08:19)
[2018-01-04] MEDS ORDERED: AZIT250T3 PO (09:01)
[2018-01-04] MEDS ORDERED: ASPI-183 PO (09:01)
[2018-01-04] MEDS ORDERED: ACET500T13 PO (09:01)
--- NOTE | 2018-01-04 09:06 | HHI.DS ---
Discharge Summary Admission Date Dec 29, 2017 at 00:52 Discharge Date: Jan 04, 2018 Admitting Diagnosis Altered mental status/Complicated UTI. (1) Altered mental status ICD Code: R41.82 - Altered mental status, unspecified Status: Acute (2) Urinary tract infection ICD Code: N39.0 - Urinary tract infection, site not specified Status: Acute Procedures None Brief History - From Admission 71-year-old female with a PMH of HTN, h/o CVA w/ Expressive Aphasia, COPD, DM, Anxiety and Depression who was brought to the emergency department for the evaluation of nausea, vomiting and diarrhea. The patient seems somewhat altered although her baseline is unknown. Previous attempts to contact her son were unsuccessful. She states that she "needs to have a cigarette." And that her "stroke has been getting worse" for approximately one month. The patient know she is in [place]. Does not know the year or her exact location. Patient complains of right sided weakness that she believes is worsening. She is unable to answer any additional questions. CBC/BMP: 01/02/18 0712 01/02/18 0712 Significant Findings Laboratory Tests Test 01/02/18 07:12 Red Blood Count 3.87 MIL/MM3 (4.00-5.30) Hematocrit 34.7 % (35.0-46.0) Monocytes (%) (Auto) 14.0 % (0.0-8.0) Eosinophils (%) (Auto) 6.0 % (0.0-4.0) Monocytes # (Auto) 1.1 TH/MM3 (0-0.9) Eosinophils # (Auto) 0.5 TH/MM3 (0-0.4) Random Glucose 132 MG/DL (74-106) Albumin 2.6 GM/DL (3.4-5.0) Free Thyroxine 1.76 NG/DL (0.76-1.46) PE at Discharge GENERAL: Weak, thin SKIN: Warm and dry. HEAD: Normocephalic. EYES: No scleral icterus. No injection or drainage. NECK: Supple, trachea midline. No JVD or lymphadenopathy. CARDIOVASCULAR: Regular rate and rhythm without murmurs, gallops, or rubs. RESPIRATORY: Breath sounds equal bilaterally. No accessory muscle use. GASTROINTESTINAL: Abdomen soft, non-tender, nondistended. EXTREMITIES: No cyanosis, or edema. NEUROLOGICAL: Awake, alert, and oriented x 3. Non-focal. Hospital Course 72F who presented to our ER with altered mental status and found to have a complicated UTI. The UTI grew out pansensitive citrobactr. After 5-6 days of Rocephin, she no longer needs treatment, though I have recommended a 1 week follow up with her PCP for urinalysis. Her son was in yesterday and states she is at her baseline. She had a stroke one year ago and needs ongoing rehab, per PT recommendations. Home healthcare is being arranged on discharge, PT, OT, Nursing. I've included a Z-pack at her son's request and am recommending aspirin given her history of stroke. Pt Condition on Discharge: Fair Discharge Disposition: Disch w/ Home Health Serv Discharge Time: <= 30 minutes Discharge Instructions DIET: Follow Instructions for: Heart Healthy Diet Activities you can perform: Weight Bearing as Edin Jackson MD Jan 04, 2018 09:06
--- NOTE | 2018-01-04 09:08 | HHI.FF ---
Face to Face Verification Diagnosis: (1) UTI (urinary tract infection) (2) Altered mental status (3) CVA (cerebral infarction) Physical Therapy Order: Evaluate and Treat Occupational Therapy Order: Evaluate and Treat Speech Therapy Order: To Improve: Cognitive skills Home Health Nursing Order: Medical education Signs/symptoms of disease process Nursing assessment with vital signs I have seen patient Jennifer Fairchild on 01/04/18. My clinical findings support the need for the requested home health care services because: Ltd mobility - disease progression Deconditioned w/ increased weakness Limited ability to care for self Impaired cognition/judgement High risk of falls I certify that my clinical findings support that this patient is homebound because: Impaired cognitive ability/safety Unsteady gait/balance Unsafe to leave home unassisted Unable to use public transportation I've recommended a urinalysis in 1 week and follow up with her PCP in 1 week. She had a stroke one year ago. Edin Green MD Jan 04, 2018 09:08
[2018-01-04 12:00] VITALS: BP 123/59; PULSE 69; RESP 18; TEMP 98.4; O2SAT 90
[2018-01-04 16:00] VITALS: BP 133/100; PULSE 71; RESP 18; TEMP 97.7; O2SAT 92
[2018-01-04 20:00] VITALS: BP 181/76; PULSE 67; RESP 17; TEMP 98.3; O2SAT 93
[2018-01-05] VITALS (7 sets, daily range): BP systolic 134–160; BP diastolic 62–92; PULSE 67–75; RESP 18–22; TEMP 98–98.4; O2SAT 91–94
[2018-01-05] MEDS: HEPARIN SODIUM - SQ 10,000 UNITS/ML VIAL SQ SCH ×3 (01:39→16:28)
[2018-01-05] MEDS: LEVOTHYROXINE SODIUM 112 MCG TAB PO SCH (06:48)
[2018-01-05] MEDS: INSULIN ASPART SUPPLEMENTAL SCALE SQ SCH ×4 (08:00→21:49)
[2018-01-05] MEDS: CARVEDILOL 12.5 MG TAB PO SCH ×2 (08:15→21:47)
[2018-01-05] MEDS: hydrALAZINE HCL 100 MG TAB PO SCH ×2 (08:15→21:48)
[2018-01-05] MEDS: CEFUROXIME AXETIL 500 MG TAB PO SCH ×2 (08:15→21:47)
[2018-01-05] MEDS: AZITHROMYCIN 250 MG TAB PO SCH (08:15)
[2018-01-05] MEDS: LISINOPRIL 20 MG TAB PO SCH (08:15)
[2018-01-05] MEDS: CITALOPRAM HYDROBROMIDE 20 MG TAB PO SCH (08:16)
[2018-01-05] MEDS: SODIUM CHLORIDE 0.9% FLUSH 10 ML FLUSH IV FLUSH SCH ×2 (08:16→21:48)
[2018-01-05] MEDS: PRAVASTATIN SOD 10 MG TAB PO SCH (08:16)
[2018-01-05] MEDS: DOCUSATE SODIUM 50 MG/SENNA 8.6 MG TAB PO SCH ×2 (08:16→21:00)
[2018-01-05] MEDS: ACETAMINOPHEN 500 MG CPLT PO PRN (08:26)
--- NOTE | 2018-01-05 15:16 | HHI.PR ---
Subjective Remarks Mrs. Fairchild was discharged yesterday, but her discharge was changed from home health at home to rehab facility. She remains in the hospital for placement. Today she complains that she is feeling queasy in her lower abdomen Objective Vitals Vital Signs Date Time Temp Pulse Resp B/P (MAP) Pulse Ox O2 Delivery O2 Flow Rate FiO2 01/05/18 11:45 98.1 69 20 140/62 (88) 93 01/05/18 08:56 98.4 71 20 140/85 (103) 94 01/05/18 04:00 98.3 69 19 160/69 (99) 94 01/05/18 00:00 98.1 75 22 140/63 (88) 93 01/04/18 20:00 98.3 67 17 181/76 (111) 93 01/04/18 16:00 97.7 71 18 133/100 (111) 92 I/O 01/04/18 01/04/18 01/04/18 01/05/18 01/05/18 01/05/18 07:00 15:00 23:00 07:00 15:00 23:00 Intake Total 360 ml Balance 360 ml Intake Oral 360 ml # Voids 4 3 3 # Bowel Movements 1 2 0 1 Result Diagram: 01/02/1871101/02/18 0712 Objective Remarks GENERAL: Weak, thin SKIN: Warm and dry. HEAD: Normocephalic. EYES: No scleral icterus. No injection or drainage. NECK: Supple, trachea midline. No JVD or lymphadenopathy. CARDIOVASCULAR: Regular rate and rhythm without murmurs, gallops, or rubs. RESPIRATORY: Breath sounds equal bilaterally. No accessory muscle use. GASTROINTESTINAL: Abdomen soft, non-tender, nondistended. EXTREMITIES: No cyanosis, or edema. NEUROLOGICAL: Awake, alert, and oriented x 3. Non-focal. Procedures None A/P Problem List: (1) Altered mental status ICD Code: R41.82 - Altered mental status, unspecified Status: Acute (2) Urinary tract infection ICD Code: N39.0 - Urinary tract infection, site not specified Status: Acute Assessment and Plan Altered mental status Consider association with UTI Head CT significant for large, old left parietal lobe infarct She has returned to her baseline according to her son and is awaiting rehab placement UTI Continue IV Rocephin Pansensitive Citrobacter on culture Today she complains of lower abdominal discomfort, repeat urinalysis ordered Cough Her son would feel safer if his mom was placed on an antibiotic, he was recently sick Z-Han ordered Type 2 diabetes Accu-Cheks with sliding scale coverage Diabetic diet Hypertension/COPD/anxiety/depression Continue home medication DVT prophylaxis Heparin Discharge planning Patient has returned to her baseline from a mental standpoint Awaiting rehab placement Problem Qualifiers (1) Urinary tract infection: Qualified Codes: N39.0 - Urinary tract infection, site not specified Edin Green MD Jan 05, 2018 15:16
[2018-01-06] VITALS (7 sets, daily range): BP systolic 109–131; BP diastolic 55–80; PULSE 67–81; RESP 17–20; TEMP 97.2–98.4; O2SAT 91–94
[2018-01-06] MEDS: HEPARIN SODIUM - SQ 10,000 UNITS/ML VIAL SQ SCH ×3 (02:24→16:22)
[2018-01-06] MEDS: LEVOTHYROXINE SODIUM 112 MCG TAB PO SCH (06:36)
[2018-01-06] MEDS: INSULIN ASPART SUPPLEMENTAL SCALE SQ SCH ×4 (08:00→21:00)
[2018-01-06] MEDS: PRAVASTATIN SOD 10 MG TAB PO SCH (09:00)
[2018-01-06] MEDS: SODIUM CHLORIDE 0.9% FLUSH 10 ML FLUSH IV FLUSH SCH ×2 (09:00→20:29)
[2018-01-06] MEDS: AZITHROMYCIN 250 MG TAB PO SCH (10:00)
[2018-01-06] MEDS: hydrALAZINE HCL 100 MG TAB PO SCH ×2 (10:00→20:29)
[2018-01-06] MEDS: DOCUSATE SODIUM 50 MG/SENNA 8.6 MG TAB PO SCH ×2 (10:01→20:29)
[2018-01-06] MEDS: CARVEDILOL 12.5 MG TAB PO SCH ×2 (10:01→20:29)
[2018-01-06] MEDS: LISINOPRIL 20 MG TAB PO SCH (10:01)
[2018-01-06] MEDS: CEFUROXIME AXETIL 500 MG TAB PO SCH ×2 (10:01→20:29)
[2018-01-06] MEDS: CITALOPRAM HYDROBROMIDE 20 MG TAB PO SCH (10:02)
--- NOTE | 2018-01-06 15:00 | HHI.PR ---
Subjective Remarks Patient states that her lower abdominal pain is improved today. She is awaiting placement. Objective Vitals Vital Signs Date Time Temp Pulse Resp B/P (MAP) Pulse Ox O2 Delivery O2 Flow Rate FiO2 01/06/18 11:58 97.8 69 20 131/60 (83) 91 01/06/18 10:04 93 Nasal Cannula 4.00 01/06/18 08:26 98.4 72 18 128/60 (82) 93 01/06/18 04:30 97.2 74 17 125/80 (95) 92 01/06/18 00:20 98.0 67 18 130/75 (93) 91 01/05/18 21:15 98.0 69 18 134/78 (96) 91 01/05/18 20:00 Nasal Cannula 2.00 01/05/18 15:31 98.0 67 20 156/92 (113) 94 I/O 01/05/18 01/05/18 01/05/18 01/06/18 01/06/18 01/06/18 07:00 15:00 23:00 07:00 15:00 23:00 Intake Total 1000 ml 400 ml Balance 1000 ml 400 ml Intake Oral 1000 ml 400 ml # Voids 3 6 7 4 # Bowel Movements 0 1 0 0 2 Result Diagram: 01/02/18 0712 01/02/18 0712 Objective Remarks GENERAL: Weak, thin SKIN: Warm and dry. HEAD: Normocephalic. EYES: No scleral icterus. No injection or drainage. NECK: Supple, trachea midline. No JVD or lymphadenopathy. CARDIOVASCULAR: Regular rate and rhythm without murmurs, gallops, or rubs. RESPIRATORY: Breath sounds equal bilaterally. No accessory muscle use. GASTROINTESTINAL: Abdomen soft, non-tender, nondistended. EXTREMITIES: No cyanosis, or edema. NEUROLOGICAL: Awake, alert, and oriented x 3. Non-focal. Procedures None A/P Problem List: (1) Altered mental status ICD Code: R41.82 - Altered mental status, unspecified Status: Acute (2) Urinary tract infection ICD Code: N39.0 - Urinary tract infection, site not specified Status: Acute Assessment and Plan Altered mental status Consider association with UTI Head CT significant for large, old left parietal lobe infarct She has returned to her baseline according to her son and is awaiting rehab placement UTI Continue IV Rocephin Pansensitive Citrobacter on culture Today she complains of lower abdominal discomfort, repeat urinalysis ordered yesterday, she has been unable to produce a clean specimen. I gave okay to straight cath once today. Cough Her son would feel safer if his mom was placed on an antibiotic, he was recently sick Since there was a delay in her discharge she may end up completing full treatment for bronchitis prior to discharge. Type 2 diabetes Accu-Cheks with sliding scale coverage Diabetic diet Hypertension/COPD/anxiety/depression Continue home medication DVT prophylaxis Heparin Discharge planning Patient has returned to her baseline from a mental standpoint Awaiting rehab placement Problem Qualifiers (1) Urinary tract infection: Qualified Codes: N39.0 - Urinary tract infection, site not specified Edin Green MD Jan 06, 2018 15:00
[2018-01-06 16:01] LABS: BILIRUBIN, URINE NEG (NEG); BLOOD, URINE NEG (NEG); GLUCOSE,URINE NEG (NEG); KETONE, URINE NEG (NEG); MUCUS URINE FEW /lpf (OCC); NITRITE,URINE NEG (NEG); SQUAMOUS EPITHELIAL CELL URINE 3 /hpf (0-5); URINE COLOR YELLOW (YELLW/STRAW); URINE LEUKOCYTE ESTERASE LARGE (NEG)
[2018-01-06] MEDS: ACETAMINOPHEN 500 MG CPLT PO PRN (17:29)
[2018-01-07 00:30] VITALS: BP 118/70; PULSE 68; RESP 17; TEMP 98; O2SAT 97
[2018-01-07] MEDS: HEPARIN SODIUM - SQ 10,000 UNITS/ML VIAL SQ SCH ×2 (02:28→09:20)
[2018-01-07 04:30] VITALS: BP 118/60; PULSE 64; RESP 19; TEMP 97.6; O2SAT 91
[2018-01-07] MEDS: LEVOTHYROXINE SODIUM 112 MCG TAB PO SCH (05:55)
[2018-01-07] MEDS: INSULIN ASPART SUPPLEMENTAL SCALE SQ SCH ×2 (08:00→12:00)
[2018-01-07 08:26] VITALS: BP 136/61; PULSE 74; RESP 17; TEMP 98.3; O2SAT 95
[2018-01-07] MEDS: PRAVASTATIN SOD 10 MG TAB PO SCH (09:00)
[2018-01-07] MEDS ORDERED: SULFAMETHOXAZOLE-TRIMETHOPRIM DS 800-160 MG TAB PO SCH (09:00)
[2018-01-07] MEDS: SODIUM CHLORIDE 0.9% FLUSH 10 ML FLUSH IV FLUSH SCH (09:15)
[2018-01-07] MEDS: LISINOPRIL 20 MG TAB PO SCH (09:22)
[2018-01-07] MEDS: CITALOPRAM HYDROBROMIDE 20 MG TAB PO SCH (09:22)
[2018-01-07] MEDS: hydrALAZINE HCL 100 MG TAB PO SCH (09:23)
[2018-01-07] MEDS: CARVEDILOL 12.5 MG TAB PO SCH (09:24)
[2018-01-07] MEDS: DOCUSATE SODIUM 50 MG/SENNA 8.6 MG TAB PO SCH (09:24)
[2018-01-07 12:05] VITALS: BP 121/58; PULSE 63; RESP 16; TEMP 97.7; O2SAT 94
--- NOTE | 2018-01-07 16:41 | HHI.PR ---
Subjective Remarks Patient is awaiting stent placement. Her urinalysis was positive and I started her on an antibiotic today. She is eager to go. Objective Vitals Vital Signs Date Time Temp Pulse Resp B/P (MAP) Pulse Ox O2 Delivery O2 Flow Rate FiO2 01/07/18 12:05 97.7 63 16 121/58 (79) 94 01/07/18 08:26 98.3 74 17 136/61 (86) 95 01/07/18 04:30 97.6 64 19 118/60 (79) 91 01/07/18 00:30 98.0 68 17 118/70 (86) 97 01/06/18 21:45 97.6 76 20 114/59 (77) 91 I/O 01/06/18 01/06/18 01/06/18 01/07/18 01/07/18 01/07/18 07:00 15:00 23:00 07:00 15:00 23:00 Intake Total 400 ml 1170 ml 100 ml 240 ml Balance 400 ml 1170 ml 100 ml 240 ml Intake Oral 400 ml 1170 ml 100 ml 240 ml # Voids 7 4 2 6 2 # Bowel Movements 0 2 0 0 1 Objective Remarks GENERAL: Weak, thin SKIN: Warm and dry. HEAD: Normocephalic. EYES: No scleral icterus. No injection or drainage. NECK: Supple, trachea midline. No JVD or lymphadenopathy. CARDIOVASCULAR: Regular rate and rhythm without murmurs, gallops, or rubs. RESPIRATORY: Breath sounds equal bilaterally. No accessory muscle use. GASTROINTESTINAL: Abdomen soft, non-tender, nondistended. EXTREMITIES: No cyanosis, or edema. NEUROLOGICAL: Awake, alert, and oriented x 3. Non-focal. Procedures None A/P Problem List: (1) Altered mental status ICD Code: R41.82 - Altered mental status, unspecified Status: Acute (2) Urinary tract infection ICD Code: N39.0 - Urinary tract infection, site not specified Status: Acute Assessment and Plan Altered mental status Consider association with UTI Head CT significant for large, old left parietal lobe infarct She has returned to her baseline according to her son and is awaiting rehab placement UTI Pansensitive Citrobacter on culture, still present despite Rocephin. Restarted on Bactrim DS. Recommend urinalysis in 1 week. Cough Her son would feel safer if his mom was placed on an antibiotic, he was recently sick Since there was a delay in her discharge she may end up completing full treatment for bronchitis prior to discharge. Type 2 diabetes Accu-Cheks with sliding scale coverage Diabetic diet Hypertension/COPD/anxiety/depression Continue home medication DVT prophylaxis Heparin Discharge planning Patient has returned to her baseline from a mental standpoint Should be discharged today Problem Qualifiers (1) Urinary tract infection: Qualified Codes: N39.0 - Urinary tract infection, site not specified Edin Green MD Jan 07, 2018 16:41
== END 2018-01-07 14:09 | DRG 690 ==
LOC: NEDAMB 16:08 → NEDA 12-29 00:52 → NEDH 12-29 10:17 → NEDA 12-29 13:09 → N05A 12-29 18:59
PROVIDERS: ADMIT Family Medicine; ATTEND Family Medicine
DX: N39.0 Urinary tract infection, site not specified (principal); R78.81 Bacteremia; E11.22 Type 2 diabetes mellitus with diabetic chronic kidney disease; F03.90 Unspecified dementia, unspecified severity, without behavioral disturbance, psychotic disturbance, mood disturbance, and anxiety; I69.354 Hemiplegia and hemiparesis following cerebral infarction affecting left non-dominant side; B96.89 Other specified bacterial agents as the cause of diseases classified elsewhere; J44.9 Chronic obstructive pulmonary disease, unspecified; I12.9 Hypertensive chronic kidney disease with stage 1 through stage 4 chronic kidney disease, or unspecified chronic kidney disease; I69.320 Aphasia following cerebral infarction; M19.90 Unspecified osteoarthritis, unspecified site; R41.82 Altered mental status, unspecified; R40.2412 Glasgow coma scale score 13-15, at arrival to emergency department; N18.2 Chronic kidney disease, stage 2 (mild); E78.00 Pure hypercholesterolemia, unspecified; E03.9 Hypothyroidism, unspecified; G47.00 Insomnia, unspecified; I25.2 Old myocardial infarction; F32.9 Major depressive disorder, single episode, unspecified; F41.9 Anxiety disorder, unspecified; Z88.1 Allergy status to other antibiotic agents; Z79.84 Long term (current) use of oral hypoglycemic drugs
CPT/HCPCS: 70450; 71045; 80048; 80053; 80076; 81001; 82247; 82248; 82550; 82948; 83036; 83605; 83735; 83880; 84100; 84439; 84443; 84480; 84484; 85007; 85025; 85027; 85610; 85730; 86403; 87040; 87077; 87086; 87186; 87205; 93005; 93306; 99285; J0330; J0696; J1644; J1815; J7030; P9612

== ENCOUNTER 2018-10-06 22:04 | Inpatient (IN) ==
[2018-10-06] MEDS ORDERED: Sodium Chlor 0.9% Inj 500 ML IV.SIG ONE (22:37)
--- NOTE | 2018-10-06 22:45 | ED ---
HPI General Chief complaint: Altered Mental Status Stated complaint: Alter mental Time Seen by Provider: 10/06/18 22:13 Source: patient History of Present Illness HPI narrative: The patient is a 73 year old female who presents to the [facility] emergency department with a history of altered mental status that was noticed by her son when he returned home from work earlier today. When ambulance services arrived the patient was noted to be in bed with a stale odor of urine in the bed and incontinence noted. Unfortunately, the patient on arrival to this facility is aware of her name, however otherwise she is not oriented and has difficulty providing her history due to confusion. Patient's O2 saturation on room air was 84%. According to ambulance services, the patient 's son reports that she does have a history of recurrent urinary tract infections. The patient's electronic medical record is reviewed regarding her prior history. 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 Related Data Home Medications Medication Instructions Recorded Confirmed Unable to Obtain Home Meds 10/06/18 10/06/18 Allergies Allergy/AdvReac Type Severity Reaction Status Date / Time oxytetracycline Allergy Severe Unverified 05/30/17 00:52 Review of Systems ROS Unobtainable ROS Unobtainable: unobtainable due to mental status PMFSH Medical History Medical History Anxiety (Acute) COPD (chronic obstructive pulmonary disease) (Acute) CVA (cerebral vascular accident) (Acute) Depression (Acute) Diabetes (Acute) Expressive aphasia (Acute) Hypertension (Acute) Surgical History Surgical History H/O endarterectomy (Acute) Hx of cataract surgery (Acute) Hx of cholecystectomy (Acute) Social History Social History Substance History: No History of Abuse Smoking Status: Former smoker How Often Do You Have a Drink Containing Alcohol: Never Recent Travel in [facility] within the Last 8 Weeks: No Recent Out of Country Travel within the Last 8 Weeks: No Immunization History Tetanus Immunization: Unsure Exam Const General: cooperative, well developed and disheveled Nutritional Appearance: obese Orientation: alert, awake, oriented to person, not oriented to place and not oriented to time [facility] Head: normocephalic and atraumatic Nose: no nasal discharge and no epistaxis Mouth: other (Dry mucous membranes.) Throat: posterior oropharynx normal and uvula midline Eyes Sclera: normal sclerae Pupils: PERRL Neck Neck: no meningeal signs, trachea midline and no JVD Resp Effort & Inspection: no use of accessory muscles Auscultation: crackles, diminished lung sounds (In the right lung base) and no wheezes Cardio Rate: regular rate Rhythm: regular rhythm Heart Sounds: no murmurs GI Inspection: non-distended Palpation: soft, no hepatosplenomegaly, no guarding, not rigid and nontender Auscultation: normal bowel sounds Back/Spine/Pelvis Back: no CVA tenderness Skin General: dry skin (warm) Neuro General: alert, awake, oriented (To person, however not place or time.) and other (The patient has no evidence of facial asymmetry. The patient has contracture noted of the right upper extremity related to her prior stroke. The patient has strength that is 5/5 in the left upper extremity and bilateral lower extremities.) Speech: expressive aphasia (With a reported prior history of this related to a prior stroke.) Motor: no movement abnormalities noted Extrem General: normal to inspection (2+ pulses in all 4 extremities.), no calf tenderness, no clubbing, no cyanosis and no edema Course Initial Documented Vital Signs Temperature 100.4 F H 10/06/18 22:36 Pulse Rate 82 10/06/18 22:36 Respiratory Rate 20 10/06/18 22:36 Blood Pressure 115/65 10/06/18 22:36 Pulse Oximetry 94 L 10/06/18 22:36 Last Documented Vital Signs Temperature 99.8 F H 10/06/18 23:36 Pulse Rate 80 10/06/18 23:36 Respiratory Rate 18 10/06/18 23:36 Blood Pressure 133/59 L 10/06/18 23:36 Pulse Oximetry 97 10/06/18 23:36 Medical Decision Making MDM Narrative Medical decision making narrative: During the course of the patient's emergency department visit, the patient's history, examination, and differential diagnosis were reviewed with the patient. The patient was placed on a ekg monitor tech with oximetry and frequent blood pressure monitoring. The patient had IV access obtained and blood work sent for analysis. Diagnostic evaluation was started regarding the patient altered mentation. The patient was noted to have room air saturations of 84%. The patient was placed on 3 L nasal cannula O2 and is up to 94%. Prior to arrival, the patient was given normal saline 1 L IV fluid bolus by ambulance services. The patient was initially provided Tylenol for fever. The patient's diagnostic evaluation is remarkable for a white count of 12.9, hemoglobin 13, platelets 149 with 84.9 neutrophils. Chemistry is remarkable for a GFR of 63, glucose 152, calcium 8.2, total bilirubin 1.9, AST 11, CPK within normal limits, troponin I is elevated at 0.10, albumin 3.2, BNP 276, ammonia level within normal limits at 21, lactic acid 0.9. Urinalysis showed signs of infection with trace ketones 500 or greater protein large leukocyte esterase, innumerable RBCs, innumerable WBCs, many bacteria, culture indicated. The patient was given Rocephin 1 g IV. CHEST X-RAY: Showed chronic perihilar interstitial opacities, otherwise no significant interval change, CT scan of the brain showed a remote posterior left MCA territory infarct, no acute intracranial abnormality. The patient's case including history, pertinent physical examination findings, and laboratory studies were discussed with Dr. Fofana. It was agreed that the patient would be admitted to the hospitalist service. The patient's results were discussed with the patient, including the plan of care. I explained that further testing and/ or monitoring is indicated based on the patient's history, examination, and/ or laboratory findings. Therefore, I recommended admission for additional evaluation. The patient expressed understanding and was agreeable with this plan. The patient was admitted to the hospital in guarded condition and sent to a bed under the care of the [facility] service. Medical Screen Exam Complete: Yes Emergency Medical Condition: Yes Differential Diagnosis Differential Diagnosis: Sepsis related encephalopathy, versus urinary tract infection, versus pneumonia, versus electrolyte derangements, versus dehydration Medical Records Medical records reviewed: Yes I reviewed the patient's medical records. Lab Data Lab results reviewed: Yes I reviewed the patient's lab results. Result diagrams: 10/06/18 22:52 10/06/18 22:52 Lab Results 10/06/18 10/06/18 10/06/18 Range/Units 22:52 22:52 22:52 WBC 12.9 H (4.0-11.0) th/mm3 RBC 4.16 (4.00-5.30) mil/mm3 Hgb 13.0 (11.6-15.3) gm/dL Hct 37.9 (35.0-46.0) % MCV 91.1 (80.0-100.0) fL MCH 31.2 (27.0-34.0) pg MCHC 34.3 (32.0-36.0) % RDW 12.5 (11.6-17.2) % Plt Count 149 L (150-450) th/mm3 MPV 9.2 (7.0-11.0) fL Neut % (Auto) 84.9 H (16.0-70.0) % Lymph % (Auto) 2.9 L (9.0-44.0) % [place] % (Auto) 11.8 H (0.0-8.0) % Eos % (Auto) 0.0 (0.0-4.0) % Baso % (Auto) 0.4 (0.0-2.0) % Neut # (Auto) 10.9 H (1.8-7.7) th/mm3 Lymph # (Auto) 0.4 L (1.0-4.8) th/mm3 [place] # (Auto) 1.5 H (0.0-0.9) th/mm3 Eos # (Auto) 0.0 (0.0-0.4) th/mm3 Baso # (Auto) 0.0 (0.0-0.2) th/mm3 WBC Differential . Differential Comment Auto diff final Sodium 139 (136-145) meq/L Potassium 3.7 (3.5-5.1) meq/L Chloride 106 (98-107) meq/L Carbon Dioxide 25.2 (21.0-32.0) meq/L Anion Gap 8 (5-15) meq/L BUN 15 (7-18) mg/dL Creatinine 0.88 (0.50-1.00) mg/dL Estimated GFR 63 L (>89) mL/min Random Glucose 152 H (74-106) mg/dL Lactic Acid 0.9 (0.4-2.0) mmol/L Calcium 8.2 L (8.5-10.1) mg/dL Total Bilirubin 1.9 H (0.2-1.0) mg/dL AST 11 L (15-37) U/L ALT 14 (10-53) U/L Alkaline Phosphatase 56 (45-117) U/L Ammonia (11-32) mcmol/L Total Creatine Kinase 118 (26-192) U/L CK-MB (CK-2) 1.5 (0.5-3.6) ng/mL Troponin I 0.10 H (0.02-0.05) ng/mL B-Natriuretic Peptide (0-100) pg/mL Total Protein 6.4 (6.4-8.2) g/dL Albumin 3.2 L (3.4-5.0) g/dL Urine Color (Yellw/Straw) Urine Clarity (Clear) Urine pH (5.0-8.5) Ur Specific [place] (1.002-1.035) Urine Protein (Neg-Trace) mg/dL Urine Glucose (UA) (Negative) mg/dL Urine Ketones (Negative) mg/dL Urine Occult Blood (Negative) Urine Nitrate (Negative) Urine Bilirubin (Negative) Urine Urobilinogen (Less than 2) mg/dL Ur Leukocyte Esterase (Negative) Urine RBC (0-3) /hpf Urine WBC (0-5) /hpf Urine WBC Clumps (None) Ur Squamous Epith Cells (0-5) /hpf Ur Renal Epithelial Cell (None) /hpf Urine Bacteria (None) /hpf Urine Mucus (Occasional) /lpf Micro UA Comment Ur Microscopic Review Urine Culture Comments 10/06/18 10/06/18 10/06/18 Range/Units 22:52 22:52 23:00 WBC (4.0-11.0) th/mm3 RBC (4.00-5.30) mil/mm3 Hgb (11.6-15.3) gm/dL Hct (35.0-46.0) % MCV (80.0-100.0) fL MCH (27.0-34.0) pg MCHC (32.0-36.0) % RDW (11.6-17.2) % Plt Count (150-450) th/mm3 MPV (7.0-11.0) fL Neut % (Auto) (16.0-70.0) % Lymph % (Auto) (9.0-44.0) % [place] % (Auto) (0.0-8.0) % Eos % (Auto) (0.0-4.0) % Baso % (Auto) (0.0-2.0) % Neut # (Auto) (1.8-7.7) th/mm3 Lymph # (Auto) (1.0-4.8) th/mm3 [place] # (Auto) (0.0-0.9) th/mm3 Eos # (Auto) (0.0-0.4) th/mm3 Baso # (Auto) (0.0-0.2) th/mm3 WBC Differential Differential Comment Sodium (136-145) meq/L Potassium (3.5-5.1) meq/L Chloride (98-107) meq/L Carbon Dioxide (21.0-32.0) meq/L Anion Gap (5-15) meq/L BUN (7-18) mg/dL Creatinine (0.50-1.00) mg/dL Estimated GFR (>89) mL/min Random Glucose (74-106) mg/dL Lactic Acid (0.4-2.0) mmol/L Calcium (8.5-10.1) mg/dL Total Bilirubin (0.2-1.0) mg/dL AST (15-37) U/L ALT (10-53) U/L Alkaline Phosphatase (45-117) U/L Ammonia 21 (11-32) mcmol/L Total Creatine Kinase (26-192) U/L CK-MB (CK-2) (0.5-3.6) ng/mL Troponin I (0.02-0.05) ng/mL B-Natriuretic Peptide 276 H (0-100) pg/mL Total Protein (6.4-8.2) g/dL Albumin (3.4-5.0) g/dL Urine Color Yellow (Yellw/Straw) Urine Clarity Cloudy H (Clear) Urine pH 5.0 (5.0-8.5) Ur Specific [place] 1.016 (1.002-1.035) Urine Protein 500 or greater (Neg-Trace) mg/dL Urine Glucose (UA) Negative (Negative) mg/dL Urine Ketones Trace H (Negative) mg/dL Urine Occult Blood Large H (Negative) Urine Nitrate Negative (Negative) Urine Bilirubin Negative (Negative) Urine Urobilinogen Less than 2 (Less than 2) mg/dL Ur Leukocyte Esterase Large H (Negative) Urine RBC (0-3) /hpf Urine WBC (0-5) /hpf Urine WBC Clumps Few H (None) Ur Squamous Epith Cells 3 (0-5) /hpf Ur Renal Epithelial Cell 1 (None) /hpf Urine Bacteria Many H (None) /hpf Urine Mucus Few H (Occasional) /lpf Micro UA Comment Cath-culture ind Ur Microscopic Review Not Reportable Urine Culture Comments Cath-cult indicated Imaging Data Radiologist's impression: Chest X-Ray 10/06/18 22:35 CONCLUSION: 1. Chronic perihilar interstitial opacities. Otherwise, no significant interval change. Head CT 10/07/18 00:00 CONCLUSION: 1. Remote posterior left MCA territory infarct. 2. No acute intracranial abnormality. . Discharge Plan Discharge Order Discharge Orders: ED Use Only Admit Order (Routine); Ordered 10/07/18 Ordered By: Debi Floyd Physicians Team ED Provider: Debi Floyd Primary Care Provider: UNKNOWN, Attending Provider: Amena Fofana Rxs /Orders / Referrals /Forms Prescriptions: No Action Unable to Obtain Home Meds RF: 0 Discharge Interventions Interventions: Vital Signs Last Done: 10/06/18 23:36 Status ED Status: Admitted Patient
--- NOTE | 2018-10-06 23:02 | XR ---
EXAM DATE: 10/06/2018 10:49 PM EST AGE/SEX: 73 years / Female INDICATIONS: Shortness of breath. CLINICAL DATA: This is the patient's initial encounter. Patient reports that signs and symptoms have been present for 1 day and indicates a pain score of Nonresponsive. MEDICAL/SURGICAL HISTORY: . Stroke. Hypertension. Chronic obstructive pulmonary disease.Diabete s. . Cholecystectomy. section.Tubal ligation.Endartectomy. [place] [facility] [place]. . FINDINGS: Mild diffuse interstitial prominence with persistent perihilar interstitial opacities. Cardiomegaly m ediastinal contours are stable. Remainder of the exam is unchanged. CONCLUSION: 1. Chronic perihilar interstitial opacities. Otherwise, no significant interval change. Electronically signed by: Alfie Gar MD Board Certified Radiologist 10/06/2018 11:00 PM E
[2018-10-06 23:08] LABS: Baso % (Auto) 0.4 % (0.0-2.0); Hematocrit 37.9 % (35.0-46.0); Lymph # (Auto) 0.4 th/mm3 (1.0-4.8); Lymph % (Auto) 2.9 % (9.0-44.0); Mean Corpuscular HGB Conc 34.3 % (32.0-36.0); Mean Corpuscular Hemoglobin 31.2 pg (27.0-34.0); Mean Corpuscular Volume 91.1 fL (80.0-100.0); Mean Platelet Volume 9.2 fL (7.0-11.0); Mono # (Auto) 1.5 th/mm3 (0.0-0.9); Mono % (Auto) 11.8 % (0.0-8.0); Neut # (Auto) 10.9 th/mm3 (1.8-7.7); Neut % (Auto) 84.9 % (16.0-70.0); Platelet Count 149 th/mm3 (150-450); Red Blood Count 4.16 mil/mm3 (4.00-5.30); Red Cell Distribution Width 12.5 % (11.6-17.2); White Blood Count 12.9 th/mm3 (4.0-11.0)
[2018-10-06 23:29] LABS: Alanine Aminotransferase 14 U/L (10-53); Albumin 3.2 g/dL (3.4-5.0); Anion Gap 8 meq/L (5-15); Aspartate Aminotransferase 11 U/L (15-37); Blood Urea Nitrogen 15 mg/dL (7-18); Calcium 8.2 mg/dL (8.5-10.1); Carbon Dioxide 25.2 meq/L (21.0-32.0); Chloride 106 meq/L (98-107); Glomerular Filtration Rate 63 mL/min (>89); Glucose,Random 152 mg/dL (74-106); Potassium 3.7 meq/L (3.5-5.1); Sodium 139 meq/L (136-145)
[2018-10-06 23:34] LABS: Alkaline Phosphatase 56 U/L (45-117); Creatine Kinase 118 U/L (26-192); Total Protein 6.4 g/dL (6.4-8.2)
[2018-10-06 23:46] LABS: Creatine Kinase MB 1.5 ng/mL (0.5-3.6)
[2018-10-06] MEDS ORDERED: Acetaminophen 325 MG Tablet PO ONE (23:49)
--- NOTE | 2018-10-07 00:53 | CT ---
EXAM DATE: 10/07/2018 12:48 AM EST AGE/SEX: 73 years / Female INDICATIONS: Altered mental status. CLINICAL DATA: This is the patient's initial encounter. Patient reports that signs and symptoms have been present for 1 day and indicates a pain score of Nonresponsive. MEDICAL/SURGICAL HISTORY: Stroke. Chronic obstructive pulmonary disease. Diabetes. Hypertension. None. RADIATION DOSE: 56.35 CTDI (mGy) COMPARISON: [facility] [place] BRAIN W/O CONTRAST, 12/28/2017. . TECHNIQUE: CT of the head without contrast. Using automated exposure control and adjustment of the mA and/or kV according to patient size, radiation dose was kept as low as reasonably achievable to ob tain optimal diagnostic quality images. DICOM format image data is available electronically for revi ew and comparison. FINDINGS: Cerebrum: Redemonstration of large region of encephalomalacia in the left posterior parietal mid to high convexities. Mild diffuse cerebral atrophy. The ventricles are normal for degree of atrophy. No evidence of midline shift, mass lesion, hemorrhage or acute infarction. No extraaxial fluid collecti ons are seen. Posterior Fossa: The cerebellum and brainstem are intact. The 4th ventricle is midline. The cerebe llopontine angle is unremarkable. Extracranial: The visualized portion of the orbits is intact. Skull: The calvaria is intact. No evidence of skull fracture. CONCLUSION: 1. Remote posterior left MCA territory infarct. 2. No acute intracranial abnormality. . Electronically signed by: Alfie Gar MD Board Certified Radiologist 10/07/2018 12:51 AM E
[2018-10-07 00:58] LABS: Bacteria,Urine Many /hpf; Bilirubin,Urine Negative (Negative); Clarity,Urine Cloudy (Clear); Color,Urine Yellow (Yellw/Straw); Glucose,Urine (UA) Negative (Negative); Leukocyte Esterase,Urine Large (Negative); Mucus,Urine Few /lpf (Occasional); Nitrite,Urine Negative (Negative); Renal Epithelial Cells,Urine 1 /hpf; Specific Gravity,Urine 1.016 (1.002-1.035); Squamous Epithelial Cell,Urine 3 /hpf (0-5)
[2018-10-07] MEDS ORDERED: Acetaminophen 325 MG Tablet PO PRN (01:30)
[2018-10-07] MEDS ORDERED: Bisacodyl 10 MG Supp RECTAL PRN (01:30)
[2018-10-07] MEDS ORDERED: Dextrose 50% in Water 50 ML Vial IV.PUSH PRN (02:39)
--- NOTE | 2018-10-07 02:40 | P.HPIM ---
History of Present Illness Service: [facility] Primary Care Physician: UNKNOWN Chief Complaint: Altered mental status History of Present Illness: 73-year-old female with a history of hypertension, CVA with right-sided residual weakness and expressive aphasia, COPD, diabetes, anxiety and depression is brought to the ER for altered mental status. Patient lives with her son and her son stated that he returned home from work and found her to be altered. Per the ER report patient was found by EVAC in bed with a stale odor of urine smell and found to be incontinent. Patient is currently still altered unable to tell me where she is or the correct year. ROS is limited due to patient's mentation. History was taken from EMR. No family is at bedside to provide any information. Inpatient Certification Inpatient Certification: I certify that the inpatient services were ordered in accordance with Medicare regulations governing the order. This includes certification that hospital inpatient services are reasonable and necessary and in the case of services not specified as inpatient-only under 42 CFR 419.22(n), that they are appropriately provided as inpatient services in accordance to with the 2-midnight benchmark under 43 CFR 412.3(e) Estimated Total Length of Stay (Days): 2 Plans for Post Hospital Care: Home Review of Systems ROS Unobtainable: unobtainable due to mental condition PMFSH Medical History Medical History CVA (cerebral vascular accident) (Acute) Diabetes (Acute) Hypertension (Acute) Anxiety (Acute) COPD (chronic obstructive pulmonary disease) (Acute) Depression (Acute) Expressive aphasia (Acute) Surgical History Surgical History H/O endarterectomy (Acute) Hx of cataract surgery (Acute) Hx of cholecystectomy (Acute) Family History Family History Other Family history unknown Social History Social History Substance History: No History of Abuse Smoking Status: Former smoker How Often Do You Have a Drink Containing Alcohol: Never Recent Travel in [place] within the Last 8 Weeks: No Recent Out of Country Travel within the Last 8 Weeks: No Immunization History Tetanus Immunization: Unsure Medications and Allergies Allergies Allergy/AdvReac Type Severity Reaction Status Date / Time oxytetracycline Allergy Severe Unverified 05/30/17 00:52 Home Medications Medication Instructions Recorded Confirmed Type Unable to Obtain Home Meds 10/06/18 10/06/18 History Active Medications: Active Medications Acetaminophen (Tylenol) 650 mg PO Q4H PRN PRN Reason: Temp > 100.4 Al Hydroxide/Mg Hydroxide (Milk Of Magnesia Liq) 30 ml PO Q12H PRN PRN Reason: Mild Constipation Bisacodyl (Dulcolax Supp) 10 mg RECTAL DAILY PRN PRN Reason: SEVERE CONSITIPATION Ceftriaxone Sodium 1,000 mg/ (Sodium Chloride) 100 mls @ 200 mls/hr IV.SIG Q24H ARMANI Lactulose (Lactulose Liq) 30 ml PO DAILY PRN PRN Reason: SEVERE CONSITIPATION Ondansetron HCl (Zofran Inj) 4 mg IV.PUSH Q6H PRN PRN Reason: NAUSEA OR VOMITING Sennosides (Senokot) 17.2 mg PO Q12H PRN PRN Reason: Moderate Constipation Sodium Chloride (Ns Flush) 2 ml IV.FLUSH PRN PRN PRN Reason: FLUSH AFTER USING IV ACCESS Sodium Chloride (Ns Flush) 2 ml IV.FLUSH BID ARMANI Physical Exam Vital signs: Last Vital Signs Temp 99.8 F H 10/06/18 23:36 Pulse 80 10/06/18 23:36 Resp 18 10/06/18 23:36 BP 133/59 L 10/06/18 23:36 Pulse Ox 97 10/06/18 23:36 Intake & Output 10/04/18 10/05/18 10/06/18 10/07/18 06:59 06:59 06:59 06:59 Intake Total 100 / 100 Balance 100 / 100 Weight 90.718 kg Narrative: GENERAL: Well-nourished patient who is confused SKIN: Warm and dry. No open lesions or abrasions EYES: No scleral icterus. No injection or drainage. CARDIOVASCULAR: Regular rate and rhythm without murmurs, gallops, or rubs. RESPIRATORY: Breath sounds equal bilaterally. No accessory muscle use. GASTROINTESTINAL: Abdomen soft, non-tender, nondistended. MUSCULOSKELETAL: No cyanosis, or edema. Neuro: Alert and confused. Moves all does not follow commands. Results Labs CBC & Chem 7: 10/06/18 22:52 10/06/18 22:52 Imaging Impressions Chest X-Ray 10/06/18 22:35 CONCLUSION: 1. Chronic perihilar interstitial opacities. Otherwise, no significant interval change. Head CT 10/07/18 00:00 CONCLUSION: 1. Remote posterior left MCA territory infarct. 2. No acute intracranial abnormality. . Caprini VTE Risk Assessment Caprini VTE Risk Assessment: Moderate/High Risk (score >= 2) Caprini Risk Assessment Model: Point Value = 1 Point Value = 2 Point Value = 3 Point Value = 5 Age 41-60 Minor surgery BMI > 25 kg/m2 Swollen legs Varicose veins or History of unexplained or recurrent spontaneous Oral contraceptives or hormone replacement Sepsis (< 1 month) Serious lung disease, including pneumonia (< 1 month) Abnormal pulmonary function Acute myocardial infarction Congestive heart failure (< 1 month) History of inflammatory bowel disease Medical patient at bed rest Age 61-74 Arthroscopic surgery Major open surgery (> 45 min) Laparoscopic surgery (> 45 min) Malignancy Confined to bed (> 72 hours) Immobilizing plaster cast Central venous access Age >= 75 History of VTE Family history of VTE Factor V Leiden Prothrombin [id number] Lupus anticoagulant Anticardiolipin antibodies Elevated serum homocysteine Heparin-induced thrombocytopenia Other congenital or acquired thrombophilia Stroke (< 1 month) Elective arthroplasty Hip, pelvis, or leg fracture Acute spinal cord injury (< 1 month) Prophylaxis Regimen: Total Risk Factor Score Risk Level Prophylaxis Regimen 0-1 Low Early ambulation 2 Moderate Order ONE of the following: *Sequential Compression Device (SCD) *Heparin 5000 units SQ BID 3-4 Higher Order ONE of the following medications: *Heparin 5000 units SQ TID *Enoxaparin/Lovenox 40 mg SQ daily (WT < 150 kg, CrCl > 30 mL/min) *Enoxaparin/Lovenox 30 mg SQ daily (WT < 150 kg, CrCl > 10-29 mL/min) *Enoxaparin/Lovenox 30 mg SQ BID (WT < 150 kg, CrCl > 30 mL/min) AND/OR *Sequential Compression Device (SCD) 5 or more Highest Order ONE of the following medications: *Heparin 5000 units SQ TID (Preferred with Epidurals) *Enoxaparin/Lovenox 40 mg SQ daily (WT < 150 kg, CrCl > 30 mL/min) *Enoxaparin/Lovenox 30 mg SQ daily (WT < 150 kg, CrCl > 10-29 mL/min) *Enoxaparin/Lovenox 30 mg SQ BID (WT < 150 kg, CrCl > 30 mL/min) AND *Sequential Compression Device (SCD) Assessment and Plan Plan 73-year-old female with a history of hypertension, CVA with right-sided residual weakness and expressive aphasia, COPD, diabetes, anxiety and depression is brought to the ER for altered mental status. Acute encephalopathy, likely secondary to UTI leukocytosis Head CT reviewed and shows a remote posterior left MCA infarct, no acute abnormality UA positive for infection, large leukocyte esterase, positive blood, positive bacteria WBC 12.9 -Neuro checks -IV antibiotics Rocephin -Urine culture pending Elevated troponin, troponin 0.1 r/o ACS -Serial troponin and EKGs -Nitropaste -We will consult cardiology if needed Hypertension, chronic -We will resume home medications when verified -Monitor vitals Diabetes, chronic -Accu-Cheks with sliding scale insulin DVT prophylaxis: Heparin Discussed Condition With: ER physician and RN
[2018-10-07 06:23] LABS: Troponin I 0.1 ng/mL (0.02-0.05)
--- NOTE | 2018-10-07 07:53 | P.PNIM ---
Subjective Interval history: f/u; acute encephalopathy/ UTI in no acute distress. denies chest pain or abdominal pain. T max 100.4. Physical Exam Vital signs: Last Vital Signs Temp 97.9 F 10/07/18 04:00 Pulse 66 10/07/18 04:45 Resp 18 10/07/18 04:00 BP 144/63 H 10/07/18 04:00 Pulse Ox 95 10/07/18 04:00 Intake & Output 10/05/18 10/06/18 10/07/18 10/08/18 06:59 06:59 06:59 06:59 Intake Total 100 / 100 Balance 100 / 100 Weight 83.3 kg Constitutional no acute distress Routine Respiratory Exam Present CTA bilaterally Routine Cardiovascular Exam Present RRR Routine Abdominal Exam Present soft Routine Extremities Exam Comments: no pedal edema. Routine Neurological Exam Present alert oriented to person and place but not to time. Urinary Catheter Management Straight: Cath placed during this visit: yes Urethral indwelling: No Insertion date: 10/06/18 Insertion time: 23:00 Results Labs CBC & Chem 7: 10/09/18 06:56 10/09/18 06:56 Imaging Imaging: Impressions Chest X-Ray 10/06/18 22:35 CONCLUSION: 1. Chronic perihilar interstitial opacities. Otherwise, no significant interval change. Head CT 10/07/18 00:00 CONCLUSION: 1. Remote posterior left MCA territory infarct. 2. No acute intracranial abnormality. . Assessment and Plan Plan A/P Acute encephalopathy, likely secondary to UTI Head CT reviewed and shows a remote posterior left MCA infarct, no acute abnormality UA positive for infection, large leukocyte esterase, positive blood, positive bacteria WBC 12.9 -Neuro checks -IV antibiotics Rocephin -Urine culture pending Elevated troponin, troponin 0.1 -currently chest pain free -Serial troponin and EKGs -We will consult cardiology if needed Hypertension, chronic -We will resume home medications when verified -Monitor vitals Diabetes, chronic -Accu-Cheks with sliding scale insulin DVT prophylaxis: Heparin PT consulted. Discharge Planning: when medically stable- pending PT evaluation. Progress Note: Quality VTE Deep Vein Thrombosis/Pulmonary Embolism Present on Admission: No
[2018-10-07] MEDS: Heparin - SQ 10,000 UNITS/ML Vial SQ SCH ×2 (08:23→20:37)
[2018-10-07] MEDS: Insulin NovoLOG Aspart Correctional Sugar Inj SQ SCH ×4 (08:34→20:37)
--- NOTE | 2018-10-07 11:40 | ECG ---
Date Performed: 10/06/2018 Time Performed: 22:54:58 PTAGE: 73 years EKG: Sinus rhythm WITH MARKED SINUS ARRHYTHMIA MODERATE ST DEPRESSION ABNORMAL ECG PREVIOUS TRACING 12/28/17 9.15: Since the previous tracing, no significant change noted DOCTOR: Tyree Kaplan Interpretating Date/Time 10/07/2018 11:39:44
[2018-10-07 12:31] LABS: Troponin I 0.11 ng/mL (0.02-0.05)
[2018-10-08 07:31] LABS: Baso % (Auto) 0.7 % (0.0-2.0); Eos % (Auto) 0.4 % (0.0-4.0); Hematocrit 34.8 % (35.0-46.0); Lymph # (Auto) 0.6 th/mm3 (1.0-4.8); Lymph % (Auto) 8.4 % (9.0-44.0); Mean Corpuscular HGB Conc 34.6 % (32.0-36.0); Mean Corpuscular Hemoglobin 31.5 pg (27.0-34.0); Mean Platelet Volume 9.6 fL (7.0-11.0); Mono # (Auto) 0.8 th/mm3 (0.0-0.9); Mono % (Auto) 11.1 % (0.0-8.0); Neut # (Auto) 5.5 th/mm3 (1.8-7.7); Neut % (Auto) 79.4 % (16.0-70.0); Platelet Count 134 th/mm3 (150-450); Red Blood Count 3.82 mil/mm3 (4.00-5.30); Red Cell Distribution Width 12.6 % (11.6-17.2); White Blood Count 6.9 th/mm3 (4.0-11.0)
[2018-10-08 07:56] LABS: Calcium 8.2 mg/dL (8.5-10.1); Carbon Dioxide 27.3 meq/L (21.0-32.0); Potassium 3.5 meq/L (3.5-5.1)
[2018-10-08] MEDS: Heparin - SQ 10,000 UNITS/ML Vial SQ SCH ×2 (09:56→22:20)
[2018-10-08] MEDS: Insulin NovoLOG Aspart Correctional Sugar Inj SQ SCH ×4 (09:56→22:36)
--- NOTE | 2018-10-08 11:18 | P.PNIM ---
Subjective Interval history: Patient seen and evaluated this morning at bedside. Patient is aware of her name, location, but is unaware of the year stating that it is [address]. Head CT reviewed and no intracranial pathology noted only a remote infarct documented. Chest x-ray without acute finding. Catheterized urine study significant for gram-negative rods identification still pending. Blood cultures negative to date patient currently receiving ceftriaxone 1 g every 24 hours. Patient without complaints of active chest pain or shortness of breath or palpitations. Patient was able to work with physical therapy and home with home health PT was recommended. Physical Exam Vital signs: Last Vital Signs Temp 99.7 F H 10/08/18 08:00 Pulse 76 10/08/18 08:00 Resp 18 10/08/18 08:00 BP 161/72 H 10/08/18 08:00 Pulse Ox 95 10/08/18 08:00 Intake & Output 10/06/18 10/07/18 10/08/18 10/09/18 06:59 06:59 06:59 06:59 Intake Total 100 / 100 100 / 100 Balance 100 / 100 100 / 100 Weight 83.3 kg 83.3 kg General: No acute distress, conversationalBut appears confused at moments HEENT: EOMI Cardiovascular: S1/S2. Respiratory: Clear to auscultation anteriorly and posteriorly Gastrointestinal: Soft, nontender, nondistended, no guarding or rebound appreciated Urology: Suprapubic tenderness with deep palpation appreciated. No CVA tenderness Extremity: 2+ radial pulse bilaterally. No edema noted Urinary Catheter Management Straight: Cath placed during this visit: yes Urethral indwelling: No Insertion date: 10/06/18 Insertion time: 23:00 Results Labs CBC & Chem 7: 10/08/18 06:47 10/08/18 06:47 Labs: Microbiology 10/06/18 22:52 Blood - Peripheral Aerobic Blood Culture - Preliminary No growth in 2 days 10/06/18 22:52 Blood - Peripheral Anaerobic Blood Culture - Preliminary No growth in 2 days 10/06/18 22:47 Blood - Peripheral Aerobic Blood Culture - Preliminary No growth in 2 days 10/06/18 22:47 Blood - Peripheral Anaerobic Blood Culture - Preliminary No growth in 2 days 10/06/18 23:00 Catheterized Urine Urine Culture - Preliminary gram negative rods Assessment and Plan Plan Patient is a pleasant 73-year-old female presenting with altered mental status found to have positive urinalysis concerning for urinary tract infection ( cystitis) Infectious disease:Acute encephalopathy, likely secondary to UTI - Head CT reviewed and shows a remote posterior left MCA infarct, no acute abnormality -UA positive for infection, large leukocyte esterase, positive blood, positive bacteria -Neuro checks -IV antibiotics Rocephin1 g every 24. Will tailor antibiotic based on culture results -Urine culture: Gram-negative rods. Species pending Cardiology:Elevated troponin, HTN -currently chest pain free -Serial troponin and EKGs -We will consult cardiology if needed. At this time low concern for acute coronary syndrome or acute plaque rupture. Likely demand ischemia in the setting of sepsis from urinary tract infection. Vasotec as needed Diabetes, chronic -Accu-Cheks with sliding scale insulin DVT prophylaxis: Heparin Diet: Cardiac PT: Home with home health PT Discharge Planning: when medically stable. Progress Note: Quality VTE Deep Vein Thrombosis/Pulmonary Embolism Present on Admission: No
[2018-10-09 04:21] VITALS: RESP 18
[2018-10-09 07:11] LABS: Hematocrit 34.8 % (35.0-46.0); Hemoglobin 12.2 gm/dL (11.6-15.3); Mean Corpuscular Hemoglobin 32.1 pg (27.0-34.0); Mean Corpuscular Volume 91.8 fL (80.0-100.0); Mean Platelet Volume 8.9 fL (7.0-11.0); Platelet Count 127 th/mm3 (150-450); Red Blood Count 3.79 mil/mm3 (4.00-5.30); Red Cell Distribution Width 12.7 % (11.6-17.2)
[2018-10-09 07:36] LABS: Calcium 8.1 mg/dL (8.5-10.1); Carbon Dioxide 30.8 meq/L (21.0-32.0); Magnesium 1.7 mg/dL (1.5-2.5); Potassium 3.7 meq/L (3.5-5.1)
[2018-10-09] MEDS: Heparin - SQ 10,000 UNITS/ML Vial SQ SCH (08:23)
[2018-10-09] MEDS: Insulin NovoLOG Aspart Correctional Sugar Inj SQ SCH ×2 (08:23→12:36)
--- NOTE | 2018-10-09 12:16 | P.DCO ---
Physical Therapy Order: Evaluate and treat and Strength and gait training Home Health Nursing Order: Medical education Case Management Consult Case Management Consult-Home Health: Yes I have seen patient Jennifer Fairchild on 10/09/18. My clinical findings support the need for the requested home health care services because: Deconditioned with increased weakness and Medication compliance is questionable I certify that my clinical findings support that this patient is homebound because:
--- NOTE | 2018-10-09 12:47 | P.DS ---
DS: Providers Date of admission: 10/07/18 01:22 Primary care physician: UNKNOWN Patient is a very pleasant 73-year-old female who presented to emergency department for altered mental status in the setting of being found altered in a pool of foul-smelling urine. Patient was admitted with the following treatments and services were provided. Urinalysis was grossly positive and concerning for urinary tract infection with cultures returning for Citrobacter. While hospitalized patient was empirically treated with ceftriaxone with clinical improvement in mental status. Patient denied any complaints of burning with urination, back pain, nausea, vomiting, or fever or chills. Patient has remained afebrile for greater than 24 hours. Physical examination was unremarkable for suprapubic tenderness or discomfort. Patient is clinically improved and stable for discharge with the following provision for care. Patient to be discharged on Levaquin antibiotic for 3 additional days with plan to follow-up in primary doctor office in 1-2 weeks. Patient should return to hospital if symptoms recur. 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 Patient lives with her son and her son stated that he returned home from work and found her to be altered. Per the ER report patient was found by [facility] in bed with a stale odor of urine smell and found to be incontinent. Patient is currently still altered unable to tell me where she is or the correct year. ROS is limited due to patient's mentation. History was taken from EMR. No family is at bedside to provide any information. DS: Summary Patient is a very pleasant 73-year-old female who presented to emergency department for altered mental status in the setting of being found altered in a pool of foul-smelling urine. Patient was admitted with the following treatments and services were provided. Urinalysis was grossly positive and concerning for urinary tract infection with cultures returning for Citrobacter. While hospitalized patient was empirically treated with ceftriaxone with clinical improvement in mental status. Patient denied any complaints of burning with urination, back pain, nausea, vomiting, or fever or chills. Patient has remained afebrile for greater than 24 hours. Physical examination was unremarkable for suprapubic tenderness or discomfort. Patient is clinically improved and stable for discharge with the following provision for care. Patient to be discharged on Levaquin antibiotic for 3 additional days with plan to follow-up in primary doctor office in 1-2 weeks. Patient should return to hospital if symptoms recur. Time Spent with Patient Total time spent providing and/or coordinating discharge services: > 30 min Quality: VTE Deep Vein Thrombosis/Pulmonary Embolism Present on Admission: No Exam Narrative Exam Narrative: urology: no suprapubic tenderness, no CVA tenderness neuro: AAO x3. knows name, location and year this morning cvs: s1/s2. no tachycardia resp: CTA Results Labs on day of discharge: Labs from last 24 hours 10/09/18 10/09/18 10/09/18 12:29 07:38 06:56 WBC 6.0 RBC 3.79 L Hgb 12.2 Hct 34.8 L MCV 91.8 MCH 32.1 MCHC 35.0 RDW 12.7 Plt Count 127 L MPV 8.9 Sodium Potassium Chloride Carbon Dioxide Anion Gap BUN Creatinine Estimated GFR POC Glucose 136 H 122 H Random Glucose Calcium Magnesium 10/09/18 10/08/18 10/08/18 06:56 22:36 17:20 WBC RBC Hgb Hct MCV MCH MCHC RDW Plt Count MPV Sodium 139 Potassium 3.7 Chloride 102 Carbon Dioxide 30.8 Anion Gap 6 BUN 13 Creatinine 0.87 Estimated GFR 63 L POC Glucose 129 H 153 H Random Glucose 118 H Calcium 8.1 L Magnesium 1.7 Preliminary micro results at discharge 10/06/18 22:52 Aerobic Blood Culture - Preliminary Blood - Peripheral No growth in 3 days Anaerobic Blood Culture - Preliminary No growth in 3 days 10/06/18 22:47 Aerobic Blood Culture - Preliminary Blood - Peripheral No growth in 3 days Anaerobic Blood Culture - Preliminary No growth in 3 days Impressions ITS Impressions Chest X-Ray 10/06/18 22:35 CONCLUSION: 1. Chronic perihilar interstitial opacities. Otherwise, no significant interval change. Head CT 10/07/18 00:00 CONCLUSION: 1. Remote posterior left MCA territory infarct. 2. No acute intracranial abnormality. . Discharge Plan Discharge Disposition Patient Disposition: Discharge Home Discharge Condition Condition: Good Discharge Order Discharge Orders: Discharge Order (Routine); Ordered 10/09/18 Ordered By: Shilo Green Discharge Details Anticipated Discharge Date: 10/09/18 Discharge Comment: discharge in afternoon after rounds. Physicians Team Primary Care Provider: UNKNOWN, Attending Provider: Shilo Green Other Providers: Jesenia Ba Rxs /Orders / Referrals /Forms Prescriptions: New levofloxacin [Levaquin] 500 mg tablet 500 mg PO DAILY 3 Days Qty: 3 RF: 0 Referrals: UNKNOWN, [Primary Care Provider] - See Instructions (please follow up with your primary medical doctor in 7-14 days If no primary care doctor please call [facility] for follow up apponitment ) Post Discharge Care Plan Care Plan Goals: Your Health Problems: Goals to Promote Your Health: * To prevent worsening of your condition * To maintain your health at the optimal level Directions to Meet Your Goals: * Take your medications as prescribed * Follow your dietary instruction * Follow activity as directed * Keep your appointments as scheduled * Take your immunizations and boosters as scheduled * If your symptoms worsen call your PCP * If no PCP go to Urgent Care or Emergency Room Smoking is dangerous to your health. Avoid second hand smoke. You may reach the 24-hour crisis hotline for domestic abuse at . Status ED Status: Left Department
[2018-10-09 14:57] VITALS: BP 153/67; PULSE 56; TEMP 97.9; O2SAT 95
== END 2018-10-09 17:12 | disposition home or self-care (01) | DRG 690 ==
LOC: NEPC 22:04 → NEDA 10-07 01:22 → N04 10-07 04:05
PROVIDERS: ADMIT Internal Medicine; ATTEND Internal Medicine
CPT/HCPCS: 70450; 71010; 71045; 80048; 80053; 81001; 82140; 82550; 82552; 82948; 82962; 83520; 83605; 83735; 83880; 84484; 85025; 85027; 87040; 87077; 87086; 87186; 90765; 93005; 96365; 97110; 97116; 97162; 99285; J0696; J1644; J1815; J2405; P9612